=== PATIENT | male | born 1970 | race African-American/Black ===

== ENCOUNTER 2017-03-15 16:35 | Emergency (ER) | payer MEDICAID, OTHER ==
[~2017-03-15] VITALS: Ht 172.7 cm; Wt 65.0 kg
[~2017-03-15 16:35] MED LIST: APIX5TAB PO; ATOR40TA PO; GLUC1000 PO; HYDR-3129 PO; LEVEMIR SQ; LEXA10TA PO; LISI20 PO; NEUR600T PO; NIFE1TAB86 PO; NOVO7030P2 SQ; ZOLP5TAB3 PO
[2017-03-15 16:39] VITALS: BP 177/97; PULSE 89; RESP 15; TEMP 97.8; O2SAT 99
--- NOTE | 2017-03-15 16:42 | PD ---
Physical Exam Date Seen by Provider: Mar 15, 2017 Time Seen by Provider: 16:40 Data Data Last Documented VS Vital Signs Date Time Temp Pulse Resp B/P (MAP) Pulse Ox O2 Delivery O2 Flow Rate FiO2 03/15/17 16:39 97.8 89 15 177/97 (123) 99 MDM Supervised Visit with KAREN: No Narrative Course 46-year-old male with PMH of left BKA presents to ED for evaluation of wound on his stump. States that he noticed the wound today. Pain rated 7/10. Worsened by weightbearing. Denies fever, chills. History of stroke with right sided weakness. Vitals reviewed. Patient seen in triage, awaiting bed placement. Dinorah Crystal Mar 15, 2017 16:42
[2017-03-15] MEDS ORDERED: MORPHINE SULFATE 4 MG/ML INJ IV PUSH ONE (20:15)
[2017-03-15] MEDS ORDERED: SODIUM CHLOR 0.9% 1000 ML INJ 1,000 ML IV ONE (20:15)
[2017-03-15] MEDS ORDERED: ONDANSETRON HCL 4 MG/2 ML VIAL IV PUSH ONE (20:15)
--- NOTE | 2017-03-15 20:39 | PD ---
HPI Chief Complaint: Skin Problem Time Seen by Provider: 20:06 Travel History International Travel<30 days: No Contact w/Intl Traveler<30days: No Traveled to known affect area: No History of Present Illness HPI Patient is a 46-year-old male who comes in complaining of a sore to his left stump. He says he just noticed it today and it started draining fluid. He says this has never happened before. He had a BKA performed there 2 years ago due to poor circulation and diabetes. He does not recall any injury. He is not sure if the prosthetic is rubbing in that area. He also complains of pain to his right flank and right side. He says he has had pain here before, but this is different. He denies fever or chills. He denies nausea or vomiting. He denies any pain with urination. PFSH Past Medical History Hx Anticoagulant Therapy: Yes Depression: Yes Cardiovascular Problems: Yes (HTN) High Cholesterol: Yes Cerebrovascular Accident: Yes Diabetes: Yes Patient Takes Glucophage: Yes Diminished Hearing: No Hypertension: Yes Musculoskeletal: Yes (R TORN ROTATOR CUFF) Immunizations Current: No Seizures: Yes Tetanus Vaccination: Unknown Influenza Vaccination: No Social History Alcohol Use: Yes (OCCAS.) Tobacco Use: Yes (2 PPD) Substance Use: No Allergies-Medications (Allergen,Severity, Reaction): Coded Allergies: No Known Allergies (Verified , 01/01/16) Reported Meds & Prescriptions Reported Meds & Active Scripts Active Levemir (Insulin Detemir) 100 Units/Ml Inj 15 Units SQ BID 30 Days Prinivil 20 mg (Lisinopril) 20 Mg Tab 40 Mg PO DAILY 30 Days Nifedipine Er (Nifedipine) 60 Mg Tabcr 60 Mg PO DAILY 30 Days Zolpidem Tartrate 5 Mg Tab 5 Mg PO HS [place] 10/325 (Hydrocodone-Acetaminophen 10/325) Acetaminophen 325/10 Hydrocodone Tab 1 Tab PO Q6H PRN Reported Atorvastatin 40 mg (Atorvastatin Calcium) 40 Mg Tab 40 Mg PO HS Eliquis (Apixaban) 5 Mg Tab 5 Mg PO BID Lexapro (Escitalopram Oxalate) 10 Mg Tab 10 Mg PO DAILY Glucophage 1000 mg (Metformin HCl) 1,000 Mg Tab 1,000 Mg PO BID Gabapentin 600 Mg Tab 600 Mg PO QID Novolin 70/30 (Insulin Human Isoph/Insulin Regular) 100 Units/Ml Inj 0 SQ DIRECTED Sliding Scale As Directed. Review of Systems Except as stated in HPI: all other systems reviewed are Neg General / Constitutional: No: Fever, Chills HENT: No: Headaches, Lightheadedness Cardiovascular: No: Chest Pain or Discomfort Respiratory: No: Shortness of Breath Gastrointestinal: Positive: Abdominal Pain, No: Nausea, Vomiting Genitourinary: Positive: Flank Pain, No: Dysuria Musculoskeletal: Positive: Pain Skin: Positive Lesions Neurologic: No: Weakness, Dizziness Physical Exam Narrative GENERAL: Awake and alert, in no acute distress. SKIN: 1 cm open wound to the anterior portion of the distal left leg. Slight drainage of fluid. No surrounding erythema or warmth. HEAD: Atraumatic. Normocephalic. EYES: Pupils equal and round. No scleral icterus. No injection or drainage. ENT: Mucous membranes pink and moist. NECK: Trachea midline. No JVD. CARDIOVASCULAR: Regular rate and rhythm. No murmur appreciated. RESPIRATORY: No accessory muscle use. Clear to auscultation. Breath sounds equal bilaterally. GASTROINTESTINAL: Abdomen soft, nondistended. Right CVA tenderness. Tender to palpation along the right side of the abdomen. No rebound or guarding. MUSCULOSKELETAL: No obvious deformities. No clubbing. No cyanosis. Left BKA. No erythema or warmth to the leg. NEUROLOGICAL: Awake and alert. No obvious cranial nerve deficits. Motor grossly within normal limits. Normal speech. PSYCHIATRIC: Appropriate mood and affect; insight and judgment normal. Data Data Last Documented VS Vital Signs Date Time Temp Pulse Resp B/P (MAP) Pulse Ox O2 Delivery O2 Flow Rate FiO2 03/15/17 16:39 97.8 89 15 177/97 (123) 99 Orders Orders Iv Access Insert/Monitor (03/15/17 20:06) Complete Blood Count With Diff (03/15/17 20:06) Comprehensive Metabolic Panel (03/15/17 20:06) Westergren Sedimentation Rate (03/15/17 20:06) Urinalysis - C+S If Indicated (03/15/17 20:06) Ct Abd/Pel W/O Iv Contrast (03/15/17 ) Mri Lower Leg W/O Contrast (03/15/17 ) Sodium Chlor 0.9% 1000 Ml Inj (Ns 1000 M (03/15/17 20:15) Morphine Inj (Morphine Inj) (03/15/17 20:15) Ondansetron Inj (Zofran Inj) (03/15/17 20:15) Wound Culture And Gram Stain (03/15/17 21:45) Clindamycin Inj (Cleocin Inj) (03/15/17 22:45) Labs Laboratory Tests Test 03/15/17 21:30 White Blood Count 8.5 TH/MM3 Red Blood Count 5.06 MIL/MM3 Hemoglobin 15.3 GM/DL Hematocrit 45.6 % Mean Corpuscular Volume 90.1 FL Mean Corpuscular Hemoglobin 30.2 PG Mean Corpuscular Hemoglobin Concent 33.5 % Red Cell Distribution Width 12.8 % Platelet Count 296 TH/MM3 Mean Platelet Volume 10.1 FL Neutrophils (%) (Auto) 52.1 % Lymphocytes (%) (Auto) 39.0 % Monocytes (%) (Auto) 7.2 % Eosinophils (%) (Auto) 0.6 % Basophils (%) (Auto) 1.1 % Neutrophils # (Auto) 4.4 TH/MM3 Lymphocytes # (Auto) 3.3 TH/MM3 Monocytes # (Auto) 0.6 TH/MM3 Eosinophils # (Auto) 0.1 TH/MM3 Basophils # (Auto) 0.1 TH/MM3 CBC Comment DIFF FINAL Differential Comment Erythrocyte Sedimentation Rate 6 mm/hr Blood Urea Nitrogen 8 MG/DL Creatinine 0.79 MG/DL Random Glucose 309 MG/DL Total Protein 7.0 GM/DL Albumin 3.3 GM/DL Calcium Level 8.7 MG/DL Alkaline Phosphatase 94 U/L Aspartate Amino Transf (AST/SGOT) 10 U/L Alanine Aminotransferase (ALT/SGPT) 19 U/L Total Bilirubin 0.4 MG/DL Sodium Level 135 MEQ/L Potassium Level 3.8 MEQ/L Chloride Level 101 MEQ/L Carbon Dioxide Level 30.3 MEQ/L Anion Gap 4 MEQ/L Estimat Glomerular Filtration Rate 127 ML/MIN [facility] Medical Decision Making Medical Screen Exam Complete: Yes Emergency Medical Condition: Yes Medical Record Reviewed: Yes Differential Diagnosis Renal stone versus pyelonephritis versus abscess versus cellulitis versus osteomyelitis Narrative Course Patient is a 46 year old male who comes in complaining of a sore to his left leg and pain to his right flank. Exam shows a small wound to his left stump and right sided CVA tenderness. IV established, labs sent. Labs, including sed rate, are negative for acute abnormalities. CT abd/pelvis shows no acute abnormalities, no renal stone. MRI of the leg shows no evidence of osteomyelitis. Given pain medicine and clindamycin. Will be discharged with prescription for Clindamycin for cellulitis. Advised to keep the wound covered and try to stay off of it with his prosthesis. Advised to follow up with his doctor and keep control of his sugar. Advised to return at anytime if the symptoms worsen. Diagnosis Primary Impression: Cellulitis Qualified Codes: L03.116 - Cellulitis of left lower limb Patient Instructions: Cellulitis (ED), General Instructions Additional Instructions: Take all of the antibiotic. Take pain medicine as needed. Follow up with your doctor. Return to the ED as needed for any worsening symptoms. Scripts Hydrocodone-Acetaminophen (Lortab) 5-325 Mg Tab 1 TAB PO Q6H Y for PAIN, #12 TAB 0 Refills Prov: Sima José MD 03/15/17 Clindamycin (Clindamycin) 300 Mg Cap 600 MG PO Q8H for Infection for 7 Days, #42 CAP 0 Refills Prov: Sima José MD 03/15/17 Disposition: 01 DISCHARGE HOME Condition: Stable Sima José MD Mar 15, 2017 20:39
--- NOTE | 2017-03-15 21:28 | RADRPT ---
EXAM DATE/TIME: 03/15/2017 21:04 [facility] COMPARISON: No previous studies available for comparison. INDICATIONS : Right flank pain. Evaluate for calculi. ORAL CONTRAST: No oral contrast ingested. RADIATION DOSE: 6.77 CTDIvol (mGy) MEDICAL HISTORY : Hypertension. Cerebrovascular disease. Seizures.Diabetes. SURGICAL HISTORY : None. ENCOUNTER: Initial ACUITY: 1 day PAIN SCALE: 7/10 LOCATION: Right flank TECHNIQUE: Volumetric scanning of the abdomen and pelvis was performed. Using automated exposure control and ad justment of the mA and/or kV according to patient size, radiation dose was kept as low as reasonably achievable to obtain optimal diagnostic quality images. DICOM format image data is available electro nically for review and comparison. FINDINGS: The scan was performed the patient's hands over the upper abdomen, causing streak artifact. LOWER LUNGS: The visualized lower lungs are clear. LIVER: Homogeneous density without lesion. There is no dilation of the biliary tree. No calcified gallston es. SPLEEN: Normal size without lesion. PANCREAS: Within normal limits. KIDNEYS: Normal in size and shape. There is no mass, stone, or hydronephrosis. No calcifications along the c ourse of either ureter. ADRENAL GLANDS: Within normal limits. VASCULAR: There is no aortic aneurysm. BOWEL/MESENTERY: No dilated loops of small or large bowel. Moderate amount of stool throughout the colon. ABDOMINAL WALL: Within normal limits. RETROPERITONEUM: There is no lymphadenopathy. BLADDER: No wall thickening or mass. No calcifications within the lumen. REPRODUCTIVE: Within normal limits. INGUINAL: There is no lymphadenopathy or hernia. MUSCULOSKELETAL: Within normal limits for patient age. CONCLUSION: No calcified renal stones or hydronephrosis. Ernesto Flynn MD on March 15, 2017 at 21:24 Board Certified Radiologist. This report was verified electronically.
[2017-03-15 21:44] LABS: AUTOMATED NEUTROPHIL # 4.4 TH/MM3 (1.8-7.7); BASOPHIL # 0.1 TH/MM3 (0-0.2); BASOPHIL % 1.1 % (0.0-2.0); EOSINOPHIL # 0.1 TH/MM3 (0-0.4); EOSINOPHIL % 0.6 % (0.0-4.0); HEMATOCRIT 45.6 % (39.0-51.0); HEMO FLAGS DIFF FINAL; LYMPHOCYTE # 3.3 TH/MM3 (1.0-4.8); MEAN CELL VOLUME 90.1 FL (80.0-100.0); MEAN CORPUSCULAR HEMOGLOBIN 30.2 PG (27.0-34.0); MEAN CORPUSCULAR HGB CONC 33.5 % (32.0-36.0); MONO % 7.2 % (0.0-8.0); NEUT % 52.1 % (16.0-70.0); PLATELET COUNT 296 TH/MM3 (150-450); RED BLOOD COUNT 5.06 MIL/MM3 (4.50-5.90); RED CELL DISTRIBUTION WIDTH 12.8 % (11.6-17.2); WHITE BLOOD COUNT 8.5 TH/MM3 (4.0-11.0)
--- NOTE | 2017-03-15 22:08 | RADRPT ---
EXAM DATE/TIME: 03/15/2017 21:32 [facility] COMPARISON: No previous studies available for comparison. INDICATIONS : Pain with new wound of stump. MEDICAL HISTORY : Hypertension. Diabetes mellitus type 2. Cerebrovascular disease. SURGICAL HISTORY : Lt BKA amputation. ENCOUNTER: Initial ACUITY: 1 day PAIN SCORE: 0/10 LOCATION: Left lower leg. TECHNIQUE: Multiplanar multisequence MRI examination of the lower leg was performed without contrast. FINDINGS: The examination is performed without intravenous contrast which limits evaluation for infectious or i nflammatory processes. There is normal signal in the marrow of the tibia and fibula at the BKA stump . There is some T1 and T2 prolongation in the cutaneous tissues inferior and lateral of the stump. No drainable fluid collections seen. No segmental abnormalities within the muscle groups. CONCLUSION: 1. No evidence of osteomyelitis. 2. Edema and thickening of the cutaneous tissues inferior and lateral at the stump site. Ernesto Flynn MD on March 15, 2017 at 22:04 Board Certified Radiologist. This report was verified electronically.
[2017-03-15 22:18] LABS: ALT (GPT) 19 U/L (12-78); ANION GAP 4 MEQ/L (5-15); AST (GOT) 10 U/L (15-37); BICARBONATE 30.3 MEQ/L (21.0-32.0); BLOOD UREA NITROGEN 8 MG/DL (7-18); CHLORIDE 101 MEQ/L (98-107); GLOMERULAR FILTRATION RATE 127 ML/MIN (>89); POTASSIUM 3.8 MEQ/L (3.5-5.1); SODIUM (NA) 135 MEQ/L (136-145)
[2017-03-15 22:21] LABS: ALKALINE PHOSPHATASE 94 U/L (45-117); TOTAL BILIRUBIN ADULT 0.4 MG/DL (0.2-1.0)
[2017-03-15] MEDS ORDERED: CLINDAMYCIN INJ 600 MG in SODIUM CHLORIDE 0.9% INJ 100 ML IV ONE (22:45)
[2017-03-15] MEDS ORDERED: HYDR-3533 PO (23:12)
[2017-03-15] MEDS ORDERED: CLIN1CAP6 PO (23:12)
== END 2017-03-15 23:40 | disposition home or self-care (01) ==
LOC: NEPD 16:35
DX: L03.116 Cellulitis of left lower limb (principal); Z89.512 Acquired absence of left leg below knee; R10.9 Unspecified abdominal pain; I10 Essential (primary) hypertension; E11.9 Type 2 diabetes mellitus without complications; E78.00 Pure hypercholesterolemia, unspecified; R56.9 Unspecified convulsions; F32.9 Major depressive disorder, single episode, unspecified; Z86.73 Personal history of transient ischemic attack (TIA), and cerebral infarction without residual deficits
CPT/HCPCS: 73718; 74176; 80053; 85025; 85652; 86403; 87070; 87077; 96374; 96375; 99285; J2270; J2405; J7030; 87186; 87205

== ENCOUNTER 2017-10-26 22:28 | Observation (INO) | payer MEDICAID, OTHER ==
[~2017-10-26] VITALS: Ht 172.7 cm; Wt 70.0 kg
[~2017-10-26 22:28] MED LIST changes: -ATOR40TA PO; +GABA600T PO; -GLUC1000 PO; +HUMALOG SQ; -HYDR-3129 PO; +HYDR-3534 PO; +HYDR-3583 PO; -LEXA10TA PO; -LISI20 PO; -NEUR600T PO; -NOVO7030P2 SQ; -ZOLP5TAB3 PO
[2017-10-26 22:48] VITALS: BP 142/73; PULSE 89; RESP 18; TEMP 98; O2SAT 100
[2017-10-26 23:01] VITALS: BP 135/66; PULSE 89; RESP 20; O2SAT 100
[2017-10-26] MEDS ORDERED: APIX5TAB PO (23:04)
--- NOTE | 2017-10-26 23:08 | PD ---
HPI Chief Complaint: Field Marketing Manager Problem Time Seen by Provider: 22:57 Travel History International Travel<30 days: No Contact w/Intl Traveler<30days: No Traveled to known affect area: No History of Present Illness HPI The patient is a 47 year old male who presents to the [facility] emergency department with a history of accidentally dislodging his PICC line when running up off of the toilet between 830 and 9 PM. Patient reports that he realized that it was dislodged when he was about to administer his nighttime antibiotic. The patient reports that he is on vancomycin and cefepime for an infection in the bone of the stump of the left lower extremity below the knee amputation site. The patient reports that he has been on antibiotics for the last 4 weeks. He reports that he was told that it would continue for another 3 weeks. The patient reports that he recently had a change in his primary care physician and has an appointment with a new one scheduled for Friday. The patient reports that he missed his nighttime dose of antibiotic. He is scheduled to have his antibiotic administered again at 9 AM. He reports that his helps him to administer the medication. The patient gets around with the use of a motorized wheelchair. The patient reports a prior history of right -sided nephrectomy stroke and a history of 4 weeks ago undergoing a right below the knee amputation and went to [place]. The patient also reports during that hospitalization having a stent placed in the right lower extremity and a cardiac stent placed. He was also told that he needs to undergo coronary artery bypass grafting, however this will not be scheduled until he completes his course of antibiotic. On review of systems, the patient denies having any recent fevers, worsening cough or congestion, neck pain, chest pain, shortness of breath, abdominal pain, vomiting, diarrhea, urinary symptoms, or new neurologic symptoms. [facility] Past Medical History Narrative Medical The patient's past medical history is significant for depression, hypertension, hyperlipidemia, history of cerebrovascular accident, diabetes mellitus, hypertension, seizure disorder, coronary artery disease, right rotator cuff injury, tobacco abuse, peripheral arterial disease. Hx Anticoagulant Therapy: Yes Depression: Yes Cardiac Catheterization: Yes Cardiovascular Problems: Yes (HTN) High Cholesterol: Yes Cerebrovascular Accident: Yes Coronary Artery Disease: Yes Diabetes: Yes Patient Takes Glucophage: No Diminished Hearing: No Hypertension: Yes Musculoskeletal: Yes (R TORN ROTATOR CUFF) Immunizations Current: No Seizures: Yes Tetanus Vaccination: Unknown Influenza Vaccination: No Past Surgical History Narrative Surgical The patient's past surgical history is significant for left below the knee amputation, stent in his leg, cardiac catheterization with cardiac stent placement, right below the knee amputation. Coronary Stent: Yes Other Surgery: Yes (PICC line placement, stent in right leg) Social History Alcohol Use: Yes (OCCAS.) Tobacco Use: Yes (trying to quit) Substance Use: No Allergies-Medications (Allergen,Severity, Reaction): Coded Allergies: No Known Allergies (Verified Adverse Reaction, Unknown, 10/26/17) Reported Meds & Prescriptions Reported Meds & Active Scripts Active Hydrocodone-Acetamin 10-325 mg (Hydrocodone/Acetaminophen) 10 Mg-325 Mg Tablet 1 Tab PO TID Gabapentin 600 Mg Tab 600 Mg PO TID Reported Santyl Topical (Collagenase) 250 Unit/Gm Oint 1 Applic TOPICAL DAILY Cefepime Inj (Cefepime HCl) 1 Gm/50 Ml Bagp 1 Gm IV Q12H Vancomycin Inj (Vancomycin HCl) 1 Gram Inj 750 Mg IV DAILY Carvedilol 25 Mg Tab 25 Mg BID Clopidogrel (Clopidogrel Bisulfate) 75 Mg Tab 75 Mg PO DAILY Lisinopril 40 Mg Tab 40 Mg PO DAILY Aspirin 81 Mg Chew 81 Mg CHEW DAILY Amitriptyline (Amitriptyline HCl) 25 Mg Tab 25 Mg PO HS Eliquis (Apixaban) 5 Mg Tab 5 Mg PO BID Levemir Inj (Insulin Detemir) 1,000 unit/ 10 ML Vial 15 Units SQ DAILY Do not mix with any other Insulin. Humalog Inj (Insulin Human Lispro) 1,000 Unit/10 Ml Vial SQ DIRECTED PRN Max dose at bedtime:( )units; sugars< 70,(0)units; sugars 150-199,(1)unit; sugars 200-249,(3)units; sugars 250-299,(5)units; sugars 300-349,(7)units; sugars more than 349,(9)units. Review of Systems Except as stated in HPI: all other systems reviewed are Neg General / Constitutional: No: Fever Eyes: No: Visual changes HENT: No: Headaches Cardiovascular: No: Chest Pain or Discomfort Respiratory: No: Shortness of Breath Gastrointestinal: No: Abdominal Pain Genitourinary: No: Dysuria Musculoskeletal: No: Pain Skin: No Rash Neurologic: No: Weakness, Focal Abnormalities, Change in Mentation, Slurred Speech, Sensory Disturbance Psychiatric: No: Depression Endocrine: No: Polydipsia Hematologic/Lymphatic: No: Easy Bruising Physical Exam Narrative General: The patient is a well-developed well-nourished male Head and Neck exam: Head is normocephalic atraumatic. Eyes: EOMI, pupils are equal round and reactive to light. Nose: Midline septum with pink mucous membranes Mouth: Dentition unremarkable. Moist mucus membranes. Posterior oropharynx is not erythematous. No tonsillar hypertrophy. Uvula midline. Airway patent. Neck: No palpable lymphadenopathy. No nuchal rigidity. No thyromegaly. Cardiovascular: Regular rate and rhythm without murmurs, gallops, or rubs. No pulse deficit to the extremities. Lungs: Clear to auscultation bilaterally. No wheezes, rhonchi, or rales. Abdomen: Soft, without tenderness to palpation in all 4 quadrants of the abdomen. No guarding, rebound, or rigidity. Negative [place] sign. Extremities: No clubbing, cyanosis, or edema. The patient has a PICC line bandage to the right upper extremity. The entirety of the PICC line is removed, however the adhesive bandages still in place holding it to his arm. No active bleeding is noted. The patient has had bilateral [id number] amputations. The patient has a bandage in place over the left lower extremity which was removed and overlying the stump he is noted to have a 3 x 3 cm ulceration with clear drainage. On examination of the right lower extremity the patient has a below the knee amputation noted with a healing stump. The patient is noted to have dara in place. There is no drainage noted. Back: No spinous process tenderness to palpation. No costovertebral angle tenderness to palpation. Neurologic Exam: At baseline given his prior history of stroke with residual weakness of the right upper and lower extremity. Skin Exam: Intact skin that is warm and dry. Data Data Last Documented VS Vital Signs Date Time Temp Pulse Resp B/P (MAP) Pulse Ox O2 Delivery O2 Flow Rate FiO2 10/26/17 23:01 89 20 135/66 (89) 100 Room Air 10/26/17 22:48 98.0 Orders Orders Complete Blood Count With Diff (10/26/17 23:33) Comprehensive Metabolic Panel (10/26/17 23:33) Prothrombin Time / Inr (Pt) (10/26/17 23:33) Act Partial Throm Time (Ptt) (10/26/17 23:33) Iv Access Insert/Monitor (10/26/17 23:33) Ecg Monitoring (10/26/17 23:33) Oximetry (10/26/17 23:33) Cefepime Inj (Maxipime Inj) (10/26/17 23:45) Vancomycin Inj (Vancomycin Inj) (10/26/17 23:45) Random Vancomycin (10/26/17 23:33) Admit Order (Ed Use Only) (10/27/17 00:57) Labs Laboratory Tests Test 10/27/17 00:00 White Blood Count 6.9 TH/MM3 Red Blood Count 2.78 MIL/MM3 Hemoglobin 8.2 GM/DL Hematocrit 24.6 % Mean Corpuscular Volume 88.4 FL Mean Corpuscular Hemoglobin 29.7 PG Mean Corpuscular Hemoglobin Concent 33.6 % Red Cell Distribution Width 15.4 % Platelet Count 321 TH/MM3 Mean Platelet Volume 8.8 FL Neutrophils (%) (Auto) 38.4 % Lymphocytes (%) (Auto) 33.2 % Monocytes (%) (Auto) 14.2 % Eosinophils (%) (Auto) 13.2 % Basophils (%) (Auto) 1.0 % Neutrophils # (Auto) 2.7 TH/MM3 Lymphocytes # (Auto) 2.3 TH/MM3 Monocytes # (Auto) 1.0 TH/MM3 Eosinophils # (Auto) 0.9 TH/MM3 Basophils # (Auto) 0.1 TH/MM3 CBC Comment DIFF FINAL Differential Comment Prothrombin Time 10.6 SEC Prothromb Time International Ratio 1.0 RATIO Activated Partial Thromboplast Time 20.8 SEC Blood Urea Nitrogen 27 MG/DL Creatinine 1.27 MG/DL Random Glucose 152 MG/DL Total Protein 7.5 GM/DL Albumin 3.2 GM/DL Calcium Level 8.4 MG/DL Alkaline Phosphatase 99 U/L Aspartate Amino Transf (AST/SGOT) 38 U/L Alanine Aminotransferase (ALT/SGPT) 35 U/L Total Bilirubin 0.4 MG/DL Sodium Level 140 MEQ/L Potassium Level 5.4 MEQ/L Chloride Level 109 MEQ/L Carbon Dioxide Level 25.0 MEQ/L Anion Gap 6 MEQ/L Estimat Glomerular Filtration Rate 73 ML/MIN Random Vancomycin Level 16.3 COMMENT [facility] Medical Decision Making Medical Screen Exam Complete: Yes Emergency Medical Condition: Yes Medical Record Reviewed: Yes Differential Diagnosis Dislodged PICC line, versus broken PICC line Narrative Course During the course of the patient's emergency department visit, the patient's history, examination, and differential diagnosis were reviewed with the patient. The patient was placed on a cardiac care unit nurse with oximetry and frequent blood pressure monitoring. The patient had IV access obtained and blood work sent for analysis. The patient was initially provided his nighttime dose of cefepime and vancomycin. The patient's laboratory studies were reviewed and remarkable for a white count of 6.9, hemoglobin 8.2, platelets 321 with 14.2 monocytes, eosinophils 13.2. CMP is remarkable for potassium of 5.4, chloride 109, BUN 27, glucose 152, calcium 8.4, AST 38, albumin 3.2. 10.6, PTT 20.8. Random vancomycin level 16.3. The patient reports that he is currently in the process of switching to a new primary care physician. He has an appointment with his new physician scheduled for Friday. The patient's primary mode of transportation is by an electric wheelchair. Given these to complicating factors I did recommend that the patient be admitted for observation and PICC line replacement while the patient is continued on IV antibiotic. Physician Communication Physician Communication The patient's case including history, pertinent physical examination findings, and laboratory studies were discussed with Dr. Irving. It was [facility] Diagnosis Primary Impression: Osteomyelitis Qualified Codes: M86.9 - Osteomyelitis, unspecified Admitting Information Admitting Physician Requests: Observation Nancy Jessica MD October 26, 2017 23:08
[2017-10-26] MEDS ORDERED: LISI40TA PO (23:09)
[2017-10-26] MEDS ORDERED: AMIT25TA9 PO (23:09)
[2017-10-26] MEDS ORDERED: CARV25TA (23:09)
[2017-10-26] MEDS ORDERED: ASPI-516 CHEW (23:09)
[2017-10-26] MEDS ORDERED: CLOP75TA PO (23:09)
[2017-10-26] MEDS ORDERED: CEFE1INJ2 IV (23:14)
[2017-10-26] MEDS ORDERED: VANC1000P IV (23:14)
[2017-10-26] MEDS ORDERED: CEFEPIME INJ 1,000 MG in SODIUM CHLORIDE 0.9% INJ 100 ML IV ONE (23:45)
[2017-10-26] MEDS ORDERED: VANCOMYCIN INJ 750 MG in SODIUM CHLOR 0.9% 250 ML INJ 250 ML IV ONE (23:45)
[2017-10-27 00:15] LABS: AUTOMATED NEUTROPHIL # 2.7 TH/MM3 (1.8-7.7); BASOPHIL # 0.1 TH/MM3 (0-0.2); EOSINOPHIL # 0.9 TH/MM3 (0-0.4); EOSINOPHIL % 13.2 % (0.0-4.0); HEMATOCRIT 24.6 % (39.0-51.0); HEMOGLOBIN 8.2 GM/DL (13.0-17.0); LYMPH % 33.2 % (9.0-44.0); LYMPHOCYTE # 2.3 TH/MM3 (1.0-4.8); MEAN CELL VOLUME 88.4 FL (80.0-100.0); MEAN CORPUSCULAR HEMOGLOBIN 29.7 PG (27.0-34.0); MEAN CORPUSCULAR HGB CONC 33.6 % (32.0-36.0); MEAN PLATELET VOLUME 8.8 FL (7.0-11.0); MONO % 14.2 % (0.0-8.0); NEUT % 38.4 % (16.0-70.0); PLATELET COUNT 321 TH/MM3 (150-450); RED BLOOD COUNT 2.78 MIL/MM3 (4.50-5.90); RED CELL DISTRIBUTION WIDTH 15.4 % (11.6-17.2); WHITE BLOOD COUNT 6.9 TH/MM3 (4.0-11.0)
[2017-10-27 00:27] LABS: ALBUMIN 3.2 GM/DL (3.4-5.0); AST (GOT) 38 U/L (15-37); BLOOD UREA NITROGEN 27 MG/DL (7-18); CALCIUM 8.4 MG/DL (8.5-10.1); CHLORIDE 109 MEQ/L (98-107); CREATININE 1.27 MG/DL (0.60-1.30); GLOMERULAR FILTRATION RATE 73 ML/MIN (>89); GLUCOSE,RANDOM 152 MG/DL (74-106); SODIUM (NA) 140 MEQ/L (136-145)
[2017-10-27 00:30] LABS: ALKALINE PHOSPHATASE 99 U/L (45-117); ALT (GPT) 35 U/L (12-78); RANDOM VANCOMYCIN 16.3 COMMENT; TOTAL BILIRUBIN ADULT 0.4 MG/DL (0.2-1.0); TOTAL PROTEIN 7.5 GM/DL (6.4-8.2)
[2017-10-27 00:31] LABS: PROTHROMBIN TIME - PATIENT 10.6 SEC (9.8-11.6)
[2017-10-27] MEDS ORDERED: COLL30T TOPICAL (00:41)
[2017-10-27 01:01] VITALS: BP 133/74; PULSE 83; RESP 16; O2SAT 97; O2SAT 98
[2017-10-27] MEDS ORDERED: ONDANSETRON ODT 4 MG TAB PO PRN (02:15)
[2017-10-27] MEDS ORDERED: MAGNESIUM HYDROXIDE SUSP 30 ML CUP PO PRN (02:15)
[2017-10-27] MEDS ORDERED: LACTULOSE SYRUP 20 GM/30 ML CUP PO PRN (02:15)
[2017-10-27] MEDS ORDERED: NALOXONE HCL 0.4 MG/ML AMP IV PUSH PRN (02:15)
[2017-10-27] MEDS ORDERED: Vancomycin Consult Pharmacy 1 EA OTHER SCH (02:15)
[2017-10-27] MEDS ORDERED: SODIUM CHLORIDE 0.9% FLUSH 10 ML FLUSH IV FLUSH PRN (02:15)
[2017-10-27] MEDS ORDERED: BISACODYL 10 MG SUPP RECTAL PRN (02:15)
[2017-10-27] MEDS ORDERED: SENNOSIDES 8.6 MG TAB PO PRN (02:15)
[2017-10-27] MEDS ORDERED: ACETAMINOPHEN 325 MG TAB PO PRN (02:15)
--- NOTE | 2017-10-27 02:18 | HHI.HP ---
HPI Service [facility] Primary Care Physician Zeyad José MD (Paul) Admission Diagnosis Left leg stump infection, picc line replacement Diagnoses: Travel History International Travel<30 Days: No Contact w/Intl Traveler <30 Da: No Traveled to Known Affected Are: No History of Present Illness 47-year-old male with a past medical history significant for coronary artery disease, peripheral vascular disease, history of CVA with right-sided deficits, diabetes mellitus, hypertension, hyperlipidemia presents to the emergency department after he accidentally removed his PICC line. The patient reports he was trying to transfer from the commode to his wheelchair when his arm got stuck pulling the PICC line out. He is on IV vancomycin and cefepime for left lower extremity osteomyelitis. He is status post bilateral BKA, with a right BKA completed approximately 1 month ago. The patient also reports a recent cardiac catheterization with stent placement. He states he requires a CABG however this cannot be done until his infection clears. He also had a stent placed in the right lower extremity during his most recent hospitalization in [place]. He is compliant with his IV antibiotics at home and is establishing with a new primary care physician with an appointment arranged for Friday. The patient denies any chest pain or shortness of breath. No fever/ chills. No abdominal pain. No nausea/vomiting/diarrhea. Residual right-sided paralysis from previous CVA is baseline. Review of Systems Except as stated in HPI: all other systems reviewed are Neg Past Family Social History Past Medical History coronary artery disease, peripheral vascular disease, history of CVA with right -sided deficits, diabetes mellitus, hypertension, hyperlipidemia Past Surgical History Right lower extremity stent placement Cardiac catheterization with stent placement Bilateral BKA most recently right side done 1 month ago Reported Medications Reported Meds & Active Scripts Active Hydrocodone-Acetamin 10-325 mg (Hydrocodone/Acetaminophen) 10 Mg-325 Mg Tablet 1 Tab PO TID Gabapentin 600 Mg Tab 600 Mg PO TID Reported Santyl Topical (Collagenase) 250 Unit/Gm Oint 1 Applic TOPICAL DAILY Cefepime Inj (Cefepime HCl) 1 Gm/50 Ml Bagp 1 Gm IV Q12H Vancomycin Inj (Vancomycin HCl) 1 Gram Inj 750 Mg IV DAILY Carvedilol 25 Mg Tab 25 Mg BID Clopidogrel (Clopidogrel Bisulfate) 75 Mg Tab 75 Mg PO DAILY Lisinopril 40 Mg Tab 40 Mg PO DAILY Aspirin 81 Mg Chew 81 Mg CHEW DAILY Amitriptyline (Amitriptyline HCl) 25 Mg Tab 25 Mg PO HS Eliquis (Apixaban) 5 Mg Tab 5 Mg PO BID Levemir Inj (Insulin Detemir) 1,000 unit/ 10 ML Vial 15 Units SQ DAILY Do not mix with any other Insulin. Humalog Inj (Insulin Human Lispro) 1,000 Unit/10 Ml Vial SQ DIRECTED PRN Max dose at bedtime:( )units; sugars< 70,(0)units; sugars 150-199,(1)unit; sugars 200-249,(3)units; sugars 250-299,(5)units; sugars 300-349,(7)units; sugars more than 349,(9)units. Allergies: Coded Allergies: No Known Allergies (Verified Adverse Reaction, Unknown, 10/26/17) Family History Mother with diabetes mellitus Social History Smokes approximately 2-3 cigarettes per day. Denies alcohol and illicit drugs. Physical Exam Vital Signs Vital Signs Date Time Temp Pulse Resp B/P (MAP) Pulse Ox O2 Delivery O2 Flow Rate FiO2 10/27/17 01:01 97 Room Air 10/27/17 01:01 83 16 133/74 (93) 98 Room Air 10/26/17 23:01 89 20 135/66 (89) 100 Room Air 10/26/17 22:48 98.0 89 18 142/73 (96) 100 Physical Exam GENERAL: -[place]ue[place] male sitting up in bed SKIN: 5 x 3 cm ulceration of the skin of the left lower extremity HEAD: Atraumatic. Normocephalic. No temporal or scalp tenderness. EYES: Pupils equal round and reactive. Extraocular motions intact. No scleral icterus. No injection or drainage. ENT: Nose without bleeding, purulent drainage or septal hematoma. Throat without erythema, tonsillar hypertrophy or exudate. Uvula midline. Airway patent. NECK: Trachea midline. No JVD or lymphadenopathy. Supple, nontender, no meningeal signs. CARDIOVASCULAR: Regular rate and rhythm without murmurs, gallops, or rubs. RESPIRATORY: Clear to auscultation. Breath sounds equal bilaterally. No wheezes , rales, or rhonchi. GASTROINTESTINAL: Abdomen soft, non-tender, nondistended. No hepato-splenomegaly , or palpable masses. No guarding. MUSCULOSKELETAL: Bilateral BKA with dara present on the right NEUROLOGICAL: Awake and alert. Cranial nerves II through XII intact. Motor and sensory grossly within normal limits. Normal speech. Laboratory Laboratory Tests Test 10/27/17 00:00 White Blood Count 6.9 Red Blood Count 2.78 Hemoglobin 8.2 Hematocrit 24.6 Mean Corpuscular Volume 88.4 Mean Corpuscular Hemoglobin 29.7 Mean Corpuscular Hemoglobin Concent 33.6 Red Cell Distribution Width 15.4 Platelet Count 321 Mean Platelet Volume 8.8 Neutrophils (%) (Auto) 38.4 Lymphocytes (%) (Auto) 33.2 Monocytes (%) (Auto) 14.2 Eosinophils (%) (Auto) 13.2 Basophils (%) (Auto) 1.0 Neutrophils # (Auto) 2.7 Lymphocytes # (Auto) 2.3 Monocytes # (Auto) 1.0 Eosinophils # (Auto) 0.9 Basophils # (Auto) 0.1 CBC Comment DIFF FINAL Differential Comment Prothrombin Time 10.6 Prothromb Time International Ratio 1.0 Activated Partial Thromboplast Time 20.8 Blood Urea Nitrogen 27 Creatinine 1.27 Random Glucose 152 Total Protein 7.5 Albumin 3.2 Calcium Level 8.4 Alkaline Phosphatase 99 Aspartate Amino Transf (AST/SGOT) 38 Alanine Aminotransferase (ALT/SGPT) 35 Total Bilirubin 0.4 Sodium Level 140 Potassium Level 5.4 Chloride Level 109 Carbon Dioxide Level 25.0 Anion Gap 6 Estimat Glomerular Filtration Rate 73 Random Vancomycin Level 16.3 Result Diagram: 10/27/17 0000 10/27/17 0000 Caprini VTE Risk Assessment Caprini VTE Risk Assessment: Mod/High Risk (score >= 2) Caprini Risk Assessment Model Point Value = 1 Point Value = 2 Point Value = 3 Point Value = 5 Age 41-60 Minor surgery BMI > 25 kg/m2 Swollen legs Varicose veins or History of unexplained or recurrent spontaneous Oral contraceptives or hormone replacement Sepsis (< 1 month) Serious lung disease, including pneumonia (< 1 month) Abnormal pulmonary function Acute myocardial infarction Congestive heart failure (< 1 month) History of inflammatory bowel disease Medical patient at bed rest Age 61-74 Arthroscopic surgery Major open surgery (> 45 min) Laparoscopic surgery (> 45 min) Malignancy Confined to bed (> 72 hours) Immobilizing plaster cast Central venous access Age >= 75 History of VTE Family history of VTE Factor V Leiden Prothrombin [id number] Lupus anticoagulant Anticardiolipin antibodies Elevated serum homocysteine Heparin-induced thrombocytopenia Other congenital or acquired thrombophilia Stroke (< 1 month) Elective arthroplasty Hip, pelvis, or leg fracture Acute spinal cord injury (< 1 month) Prophylaxis Regimen Total Risk Factor Score Risk Level Prophylaxis Regimen 0-1 Low Early ambulation 2 Moderate Order ONE of the following: *Sequential Compression Device (SCD) *Heparin 5000 units SQ BID 3-4 Higher Order ONE of the following medications: *Heparin 5000 units SQ TID *Enoxaparin/Lovenox 40 mg SQ daily (WT < 150 kg, CrCl > 30 mL/min) *Enoxaparin/Lovenox 30 mg SQ daily (WT < 150 kg, CrCl > 10-29 mL/min) *Enoxaparin/Lovenox 30 mg SQ BID (WT < 150 kg, CrCl > 30 mL/min) AND/OR *Sequential Compression Device (SCD) 5 or more Highest Order ONE of the following medications: *Heparin 5000 units SQ TID (Preferred with Epidurals) *Enoxaparin/Lovenox 40 mg SQ daily (WT < 150 kg, CrCl > 30 mL/min) *Enoxaparin/Lovenox 30 mg SQ daily (WT < 150 kg, CrCl > 10-29 mL/min) *Enoxaparin/Lovenox 30 mg SQ BID (WT < 150 kg, CrCl > 30 mL/min) AND *Sequential Compression Device (SCD) Assessment and Plan Assessment and Plan Assessment/plan: 1. Osteomyelitis Patient on vancomycin and cefepime, continue at home dosing Vascular access team consulted for PICC line placement Patient will follow with his PCP on Friday Anticipate discharge after PICC placed 2. CAD/PVD/history of CVA Continue home Plavix, Eliquis and aspirin 3. Diabetes mellitus Continue home Levemir Sliding-scale insulin Monitor blood glucose 4. Hypertension/hyperlipidemia Continue home medication FEN Heart healthy diabetic diet Electrolytes: Monitor and replete as needed Iqra Irving MD October 27, 2017 02:18
[2017-10-27 03:34] VITALS: BP 116/63; PULSE 82; RESP 18; O2SAT 100
[2017-10-27 07:22] VITALS: BP 132/73; PULSE 81; RESP 20; TEMP 97.5; O2SAT 98
--- NOTE | 2017-10-27 08:27 | HHI.DCPOC ---
Discharge Care Plan Diagnosis: (1) DM (diabetes mellitus) (2) Tobacco abuse (3) CVA (cerebral vascular accident) (4) HTN (hypertension) Your Health Problems Are: Anxiety Inflammation Swelling Goals to Promote Your Health * To prevent worsening of your condition and complications * To maintain your health at the optimal level Directions to Meet Your Goals Take your medications as prescribed Follow your dietary instruction Follow activity as directed Keep your appointments as scheduled Take your immunizations and boosters as scheduled If your symptoms worsen call your PCP, if no PCP go to Urgent Care Center or Emergency Room Smoking is Dangerous to Your Health. Avoid second hand smoke Call the 24-hour hour crisis hotline for domestic abuse at [place] October 27, 2017 08:27
--- NOTE | 2017-10-27 08:38 | HHI.FF ---
Face to Face Verification Diagnosis: (1) Osteomyelitis (2) DM (diabetes mellitus) (3) Tobacco abuse (4) CVA (cerebral vascular accident) Physical Therapy Order: Evaluate and Treat Home Health Nursing Order: Medical education Signs/symptoms of disease process Medication education-adverse effect Wound care and dressing changes Nursing assessment with vital signs IV medication administration Home Health Aide Order: To Assist In: Bathing and personal care I have seen patient Chidi Mattson on 10/27/17. My clinical findings support the need for the requested home health care services because: Ltd mobility - disease progression Limited ability to care for self I certify that my clinical findings support that this patient is homebound because: Need for psychosocial assistance [id number] bed/chair [place] October 27, 2017 08:38
--- NOTE | 2017-10-27 08:59 | HHI.PR ---
Subjective Remarks Follow-up accidental removal of PICC line/groin osteomyelitis of left stump on IV antibiotics October 27, 2017-patient seen and examined, no acute event overnight vital stable. Awaiting for vascular to see him to place a PICC line. Objective Vitals Vital Signs Date Time Temp Pulse Resp B/P (MAP) Pulse Ox O2 Delivery O2 Flow Rate FiO2 10/27/17 07:22 97.5 81 20 132/73 (92) 98 10/27/17 03:34 82 18 116/63 (80) 100 10/27/17 02:54 10/27/17 01:01 97 Room Air 10/27/17 01:01 83 16 133/74 (93) 98 Room Air 10/26/17 23:01 89 20 135/66 (89) 100 Room Air 10/26/17 22:48 98.0 89 18 142/73 (96) 100 I/O 10/26/17 10/26/17 10/26/17 10/27/17 10/27/17 10/27/17 07:00 15:00 23:00 07:00 15:00 23:00 Intake Total 357.5 ml Balance 357.5 ml Intake IV Total 357.5 ml # Voids 1 Result Diagram: 10/27/17 0000 10/27/17 0000 Objective Remarks GENERAL: NAD SKIN: Warm and dry. HEAD: Normocephalic. EYES: No scleral icterus. No injection or drainage. NECK: Supple, trachea midline. No JVD or lymphadenopathy. CARDIOVASCULAR: Regular rate and rhythm without murmurs, gallops, or rubs. RESPIRATORY: Breath sounds equal bilaterally. No accessory muscle use. GASTROINTESTINAL: Abdomen soft, non-tender, nondistended. MUSCULOSKELETAL: No cyanosis, or edema. Bilateral BKAs; left stump with wound non purulent BACK: Nontender without obvious deformity. No CVA tenderness. A/P Problem List: (1) Osteomyelitis ICD Code: M86.9 - Osteomyelitis, unspecified (2) HTN (hypertension) ICD Code: I10 - Essential (primary) hypertension Status: Acute Assessment and Plan 47-year-old man with 1. Osteomyelitis Patient on vancomycin and cefepime, continue at home dosing Vascular access team consulted for PICC line placement Patient will follow with his PCP on Friday 2. CAD/PVD/history of CVA Continue home Plavix, Eliquis and aspirin 3. Diabetes mellitus Continue home Levemir Sliding-scale insulin Monitor blood glucose 4. Hypertension/hyperlipidemia Continue home medication Discharge Planning Discharge patient to home Condition on discharge: Improved ADA Diet as tolerated Ad Rena activity Rx written:None Follow-up with primary care physician 10/29/17 Omi Ayon MD October 27, 2017 08:59
[2017-10-27] MEDS ORDERED: GABAPENTIN 300 MG CAP PO SCH (09:00)
[2017-10-27] MEDS ORDERED: SODIUM CHLORIDE 0.9% FLUSH 10 ML FLUSH IV FLUSH SCH (09:00)
[2017-10-27] MEDS ORDERED: ASPIRIN 81 MG CHEW TAB CHEW SCH (09:00)
[2017-10-27] MEDS ORDERED: CARVEDILOL 12.5 MG TAB PO SCH (09:00)
[2017-10-27] MEDS ORDERED: ACETAMINOPHEN/HYDROcodone 325 MG/10 MG TAB PO SCH (09:00)
[2017-10-27] MEDS ORDERED: CEFEPIME INJ 1,000 MG in SODIUM CHLORIDE 0.9% INJ 100 ML IV SCH (09:00)
[2017-10-27] MEDS ORDERED: INSULIN DETEMIR 100 UNITS/ML VIAL SQ SCH (09:00)
[2017-10-27] MEDS ORDERED: APIXABAN 5 MG TABLET PO SCH (09:00)
[2017-10-27] MEDS ORDERED: DOCUSATE SODIUM 50 MG/SENNA 8.6 MG TAB PO SCH (09:00)
[2017-10-27] MEDS ORDERED: VANCOMYCIN INJ 750 MG in SODIUM CHLOR 0.9% 250 ML INJ 250 ML IV SCH (09:00)
[2017-10-27] MEDS ORDERED: LISINOPRIL 20 MG TAB PO SCH (09:00)
[2017-10-27] MEDS ORDERED: CLOPIDOGREL 75 MG TAB PO SCH (09:00)
[2017-10-27 10:53] VITALS: BP 153/84; PULSE 84; RESP 20; TEMP 97.9; O2SAT 100
[2017-10-27] MEDS ORDERED: AMITRIPTYLINE HCL 25 MG TAB PO SCH (21:00)
[2017-10-28] MEDS ORDERED: VANCOMYCIN INJ 750 MG in SODIUM CHLOR 0.9% 250 ML INJ 250 ML IV SCH (01:00)
[2017-10-30] MEDS ORDERED: PHARMACY ORDERED LAB ONE (00:45)
== END 2017-10-27 13:12 | disposition home or self-care (01) ==
LOC: NEPE 22:28 → NEDA 10-27 00:59 → NEPGCP 10-27 02:54
PROVIDERS: ADMIT Hospitalist; ATTEND Hospitalist
DX: T87.44 Infection of amputation stump, left lower extremity (principal); E11.69 Type 2 diabetes mellitus with other specified complication; M86.9 Osteomyelitis, unspecified; E11.51 Type 2 diabetes mellitus with diabetic peripheral angiopathy without gangrene; I25.10 Atherosclerotic heart disease of native coronary artery without angina pectoris; I10 Essential (primary) hypertension; E78.5 Hyperlipidemia, unspecified; G40.909 Epilepsy, unspecified, not intractable, without status epilepticus; I69.351 Hemiplegia and hemiparesis following cerebral infarction affecting right dominant side; F32.9 Major depressive disorder, single episode, unspecified; F17.210 Nicotine dependence, cigarettes, uncomplicated; Z45.2 Encounter for adjustment and management of vascular access device; Z79.899 Other long term (current) drug therapy; Z79.82 Long term (current) use of aspirin; Z79.01 Long term (current) use of anticoagulants; Z79.02 Long term (current) use of antithrombotics/antiplatelets; Z89.511 Acquired absence of right leg below knee; Z89.512 Acquired absence of left leg below knee; Y83.5 Amputation of limb(s) as the cause of abnormal reaction of the patient, or of later complication, without mention of misadventure at the time of the procedure
CPT/HCPCS: 36569; 76937; 80053; 80202; 85025; 85610; 85730; 96365; 96368; 96372; 99285; G0378; J0692; J3370; J7050

== ENCOUNTER 2017-11-02 18:04 | Emergency (ER) | payer OTHER ==
[~2017-11-02] VITALS: Ht 172.7 cm; Wt 68.0 kg
[~2017-11-02 18:04] MED LIST changes: +AMIT25TA9 PO; +ASPI-516 CHEW; +CARV25TA; +CEFE1INJ2 IV; +CLOP75TA PO; +COLL30T TOPICAL; -HYDR-3534 PO; +LISI40TA PO; -NIFE1TAB86 PO; +VANC1000P IV
[2017-11-02 18:13] VITALS: BP 131/68; PULSE 91; RESP 18; TEMP 98; O2SAT 99
--- NOTE | 2017-11-02 18:43 | PD ---
HPI Chief Complaint: [employer] Problem Time Seen by Provider: 18:35 Travel History International Travel<30 days: No Contact w/Intl Traveler<30days: No Traveled to known affect area: No History of Present Illness HPI Patient is a 47-year-old male who comes in because he says his PICC line is not working. He says that a home health aide came to flush it and was unable to and told him to come to the emergency department. He has no other complaints at this time. Denies any pain or fevers. Severity is mild. PFSH Past Medical History Hx Anticoagulant Therapy: Yes Asthma: No Blood Disorders: No Anxiety: Yes Depression: Yes Heart Rhythm Problems: No Cancer: No Cardiac Catheterization: Yes Cardiovascular Problems: Yes High Cholesterol: Yes Chemotherapy: No Chest Pain: No Congestive Heart Failure: No COPD: No Cerebrovascular Accident: Yes Coronary Artery Disease: Yes Diabetes: Yes Patient Takes Glucophage: Yes Diminished Hearing: No Endocrine: No Genitourinary: No Hypertension: Yes Immune Disorder: No Musculoskeletal: Yes Neurologic: No Psychiatric: Yes Reproductive: No Respiratory: No Immunizations Current: No Myocardial Infarction: Yes Radiation Therapy: No Seizures: Yes Sleep Apnea: No Thyroid Disease: No Past Surgical History Cardiac Surgery: Yes (stent) Coronary Stent: Yes Thoracic Surgery: Yes (stent right leg) Other Surgery: Yes (PICC line placement, stent in right leg) Social History Alcohol Use: No Tobacco Use: Yes (trying to quit) Substance Use: No Allergies-Medications (Allergen,Severity, Reaction): Coded Allergies: No Known Allergies (Verified Adverse Reaction, Unknown, 10/26/17) Reported Meds & Prescriptions Reported Meds & Active Scripts Active Hydrocodone-Acetamin 10-325 mg (Hydrocodone/Acetaminophen) 10 Mg-325 Mg Tablet 1 Tab PO TID Gabapentin 600 Mg Tab 600 Mg PO TID Reported Santyl Topical (Collagenase) 250 Unit/Gm Oint 1 Applic TOPICAL DAILY Cefepime Inj (Cefepime HCl) 1 Gm/50 Ml Bagp 1 Gm IV Q12H Vancomycin Inj (Vancomycin HCl) 1 Gram Inj 750 Mg IV DAILY Carvedilol 25 Mg Tab 25 Mg BID Clopidogrel (Clopidogrel Bisulfate) 75 Mg Tab 75 Mg PO DAILY Lisinopril 40 Mg Tab 40 Mg PO DAILY Aspirin 81 Mg Chew 81 Mg CHEW DAILY Amitriptyline (Amitriptyline HCl) 25 Mg Tab 25 Mg PO HS Eliquis (Apixaban) 5 Mg Tab 5 Mg PO BID Levemir Inj (Insulin Detemir) 1,000 unit/ 10 ML Vial 15 Units SQ DAILY Do not mix with any other Insulin. Humalog Inj (Insulin Human Lispro) 1,000 Unit/10 Ml Vial SQ DIRECTED PRN Max dose at bedtime:( )units; sugars< 70,(0)units; sugars 150-199,(1)unit; sugars 200-249,(3)units; sugars 250-299,(5)units; sugars 300-349,(7)units; sugars more than 349,(9)units. Review of Systems General / Constitutional: No: Fever, Chills HENT: No: Headaches, Lightheadedness Cardiovascular: No: Chest Pain or Discomfort Respiratory: No: Shortness of Breath Gastrointestinal: No: Nausea, Vomiting Musculoskeletal: No: Myalgias Skin: No Rash, No Change in Pigmentation Neurologic: No: Weakness, Dizziness Physical Exam Narrative GENERAL: Awake and alert, no acute distress. SKIN: Focused skin assessment warm/dry. PICC line in place, no signs of infection. HEAD: Atraumatic. Normocephalic. EYES: Pupils equal and round. No scleral icterus. ENT: Mucous membranes pink and moist. CARDIOVASCULAR: Regular rate and rhythm. No murmur appreciated. RESPIRATORY: No accessory muscle use. Clear to auscultation. Breath sounds equal bilaterally. MUSCULOSKELETAL: No obvious deformities. No clubbing. No cyanosis. No edema. Bilateral BKA NEUROLOGICAL: Awake and alert. No obvious cranial nerve deficits. Motor grossly within normal limits. Normal speech. Data Data Last Documented VS Vital Signs Date Time Temp Pulse Resp B/P (MAP) Pulse Ox O2 Delivery O2 Flow Rate FiO2 11/02/17 18:24 98 18 99 11/02/17 18:13 98.0 131/68 (89) Orders Orders Ed Discharge Order (11/02/17 18:44) MDM Medical Decision Making Medical Screen Exam Complete: Yes Emergency Medical Condition: Yes Medical Record Reviewed: Yes Differential Diagnosis PICC line complication vs infection vs cellulitis Narrative Course Patient is a 47 year old male who comes in because he says his PICC line is clogged. He has no other complaints. PICC line flushed by RN. Patient has his medications at home. Advised to continue medications as prescribed. Advised to return to the ED as needed for any worsening symptoms. Diagnosis Primary Impression: Occluded PICC line Qualified Codes: T82.898A - Other specified complication of vascular prosthetic devices, implants and grafts, initial encounter Patient Instructions: General Instructions, Peripherally Inserted Central Catheters and Midline Catheters (ED) Additional Instructions: Take your medications as directed. Follow-up with your doctor. Return to the ED as needed for any worsening symptoms. Disposition: 01 DISCHARGE HOME Condition: Stable Sima José MD November 02, 2017 18:43
== END 2017-11-02 19:07 | disposition home or self-care (01) ==
LOC: NEPE 18:04
DX: T82.898A Other specified complication of vascular prosthetic devices, implants and grafts, initial encounter (principal); I10 Essential (primary) hypertension; E11.9 Type 2 diabetes mellitus without complications; E78.00 Pure hypercholesterolemia, unspecified; I25.10 Atherosclerotic heart disease of native coronary artery without angina pectoris; G40.909 Epilepsy, unspecified, not intractable, without status epilepticus; F41.8 Other specified anxiety disorders; Z72.0 Tobacco use; Z79.01 Long term (current) use of anticoagulants; Z79.4 Long term (current) use of insulin; Z87.39 Personal history of other diseases of the musculoskeletal system and connective tissue
CPT/HCPCS: 99282

== ENCOUNTER 2017-11-08 22:44 | Emergency (ER) | payer OTHER ==
[2017-11-08 22:49] VITALS: BP 133/73; PULSE 88; RESP 18; TEMP 97.8; O2SAT 98
[2017-11-08] MEDS ORDERED: ACETAMINOPHEN 325 MG TAB PO ONE (23:45)
--- NOTE | 2017-11-09 00:35 | RADRPT ---
EXAM DATE: 11/09/2017 12:24 AM EDT AGE/SEX: 47 years / Male INDICATIONS: Rib pain post fall. CLINICAL DATA: This is the patient's initial encounter. Patient reports that signs and symptoms have been present for 1 day and indicates a pain score of 10/10. MEDICAL/SURGICAL HISTORY: Hypercholesterolemia. Hypertension. Diabetes. Cerebrovascular acci dent. Myocardial infarction. Coronary artery disease. Heartburn. . Stent right leg. Picc line place ment. Coronary stent. Cardiac cath. [place] [facility] [place]. . FINDINGS: PA and lateral views of the chest demonstrate the lungs to be symmetrically aerated without evidence of mass, infiltrate or effusion. The cardiomediastinal contours are unremarkable. Chronic glenohumeral joint arthropathy demonstrated, right worse than left. No perceptible fracture o f the visualized osseous structures. CONCLUSION: No perceptible fracture. No evidence of acute cardiopulmonary disease. Electronically signed by: Jayce Maldonado MD 11/09/2017 12:34 AM EDT
[2017-11-09] MEDS ORDERED: TYLETAB34 PO (00:43)
--- NOTE | 2017-11-09 00:43 | PD ---
HPI Chief Complaint: Fall Time Seen by Provider: 23:31 Travel History International Travel<30 days: No Contact w/Intl Traveler<30days: No Traveled to known affect area: No History of Present Illness HPI Patient is a 47-year-old male presenting to the emergency department for evaluation of right-sided rib pain and bleeding from his right ear after he sustained a fall on . Patient states he was sitting on his shower chair when he leaned forward to lemon picker a red, subsequently fell and hit his right ribs and right ear. Patient states the bleeding from his ear will not stop. Patient denies any head injury or loss of consciousness, shortness of breath, abdominal pain, dizziness or weakness. Patient has bilateral BKA secondary to peripheral artery disease. He also has an old stroke which resulted in right-sided hemiparesis. Patient was evaluated by his home health nurse after the accident occurred. He reports his pain at the 5 out of 10, he describes the pain is sore. Worse with movement. No alleviating factors. Patient has not taken any medications to alleviate the pain. PFSH Past Medical History Hx Anticoagulant Therapy: Yes Anxiety: Yes Depression: Yes Cardiac Catheterization: Yes Cardiovascular Problems: Yes High Cholesterol: Yes Cerebrovascular Accident: Yes Coronary Artery Disease: Yes Diabetes: Yes Hypertension: Yes Implanted Vascular Access Dvce: Yes Musculoskeletal: Yes Myocardial Infarction: Yes Seizures: Yes Tetanus Vaccination: Unknown Influenza Vaccination: No Past Surgical History Cardiac Surgery: Yes (stent) Coronary Stent: Yes Thoracic Surgery: Yes (stent right leg) Other Surgery: Yes (PICC line placement, stent in right leg) Social History Alcohol Use: No Tobacco Use: Yes Substance Use: No Allergies-Medications (Allergen,Severity, Reaction): Coded Allergies: No Known Allergies (Verified Adverse Reaction, Unknown, 11/08/17) Reported Meds & Prescriptions Reported Meds & Active Scripts Active Hydrocodone-Acetamin 10-325 mg (Hydrocodone/Acetaminophen) 10 Mg-325 Mg Tablet 1 Tab PO TID Gabapentin 600 Mg Tab 600 Mg PO TID Reported Santyl Topical (Collagenase) 250 Unit/Gm Oint 1 Applic TOPICAL DAILY Cefepime Inj (Cefepime HCl) 1 Gm/50 Ml Bagp 1 Gm IV Q12H Vancomycin Inj (Vancomycin HCl) 1 Gram Inj 750 Mg IV DAILY Carvedilol 25 Mg Tab 25 Mg BID Clopidogrel (Clopidogrel Bisulfate) 75 Mg Tab 75 Mg PO DAILY Lisinopril 40 Mg Tab 40 Mg PO DAILY Aspirin 81 Mg Chew 81 Mg CHEW DAILY Amitriptyline (Amitriptyline HCl) 25 Mg Tab 25 Mg PO HS Eliquis (Apixaban) 5 Mg Tab 5 Mg PO BID Levemir Inj (Insulin Detemir) 1,000 unit/ 10 ML Vial 15 Units SQ DAILY Do not mix with any other Insulin. Humalog Inj (Insulin Human Lispro) 1,000 Unit/10 Ml Vial SQ DIRECTED PRN Max dose at bedtime:( )units; sugars< 70,(0)units; sugars 150-199,(1)unit; sugars 200-249,(3)units; sugars 250-299,(5)units; sugars 300-349,(7)units; sugars more than 349,(9)units. Review of Systems Except as stated in HPI: all other systems reviewed are Neg General / Constitutional: No: Fever Eyes: No: Blurred Vision HENT: Positive: Ear Discharge, No: Headaches Cardiovascular: No: Chest Pain or Discomfort Respiratory: Positive: Pleuritic Pain, No: Shortness of Breath Gastrointestinal: No: Nausea, Abdominal Pain Physical Exam Narrative GENERAL: Well-developed, well-nourished, alert -[place] male. Presenting in no acute distress. SKIN: Warm and dry. Superficial abrasion to right outer ear. HEAD: Atraumatic. Normocephalic. EYES: Pupils equal and round. No scleral icterus. No injection or drainage. ENT: No nasal bleeding or discharge. Mucous membranes pink and moist. NECK: Trachea midline. No JVD. CARDIOVASCULAR: Regular rate and rhythm. RESPIRATORY: No accessory muscle use. Clear to auscultation. Breath sounds equal bilaterally. GASTROINTESTINAL: Abdomen soft, non-tender, nondistended. Hepatic and splenic margins not palpable. MUSCULOSKELETAL: Extremities without clubbing, cyanosis, or edema. No obvious deformities. Bilateral BKA. NEUROLOGICAL: Awake and alert. No obvious cranial nerve deficits. Motor grossly within normal limits. Five out of 5 muscle strength in the left arms and legs. Right hemiparesis. Normal speech. PSYCHIATRIC: Appropriate mood and affect; insight and judgment normal. Data Data Last Documented VS Vital Signs Date Time Temp Pulse Resp B/P (MAP) Pulse Ox O2 Delivery O2 Flow Rate FiO2 11/08/17 22:49 97.8 88 18 133/73 (93) 98 Orders Orders Chest, Pa & Lat (11/08/17 ) Acetaminophen (Tylenol) (11/08/17 23:45) MDM Medical Decision Making Medical Screen Exam Complete: Yes Emergency Medical Condition: Yes Interpretation(s) Vital Signs Date Time Temp Pulse Resp B/P (MAP) Pulse Ox O2 Delivery O2 Flow Rate FiO2 11/08/17 22:49 97.8 88 18 133/73 (93) 98 Differential Diagnosis Contusion versus fracture versus laceration versus abrasion versus other Narrative Course Patient is a 39-year-old male with multiple medical problems presenting after mechanical fall 3 days ago. Patient's vital signs are stable. Chest x-ray which is read by the radiologist shows no perceptible fracture. No evidence of acute cardiopulmonary disease. Patient was given acetaminophen for pain. He was reassured that there was no acute findings in his ear and that it was a superficial abrasion to the outer ear. He was encouraged to follow-up with his primary doctor or return to emergency department for any new or worsening symptoms. He verbalized understanding of these instructions. Patient stable for discharge. Diagnosis Primary Impression: Fall Qualified Codes: W19.XXXA - Unspecified fall, initial encounter Additional Impressions: Rib pain on right side Abrasion of right ear Qualified Codes: S00.411A - Abrasion of right ear, initial encounter Referrals: Primary Care Physician 1 week Patient Instructions: Abrasion (ED), General Instructions, Rib Contusion (ED) Additional Instructions: Follow-up with your primary doctor Take medication as needed and as directed for pain Return to emergency department for any new or worsening symptoms Med/Other Pt SpecificInfo: Prescription(s) given Scripts Acetaminophen-Codeine (Tylenol-Codeine #3) 300-30 mg Tab 1 TAB PO Q6H Y for PAIN, #10 TAB 0 Refills Prov: Saumya Hazel 11/09/17 Disposition: 01 DISCHARGE HOME Condition: Stable Saumya Hazel November 09, 2017 00:43
== END 2017-11-09 00:59 | disposition home or self-care (01) ==
LOC: NEPD 22:44
DX: S00.411A Abrasion of right ear, initial encounter (principal); R07.81 Pleurodynia; E11.51 Type 2 diabetes mellitus with diabetic peripheral angiopathy without gangrene; I10 Essential (primary) hypertension; W07.XXXA Fall from chair, initial encounter; Z72.0 Tobacco use; Z79.4 Long term (current) use of insulin
CPT/HCPCS: 71046; 99283

== ENCOUNTER 2017-12-28 18:05 | Inpatient (IN) ==
[2017-12-28] MEDS ORDERED: Sod Chloride 0.9% Inj 1,000 ML IV.CONT SCH (18:45)
--- NOTE | 2017-12-28 18:54 | XR ---
EXAM DATE: 12/28/2017 6:47 PM EDT AGE/SEX: 47 years / Male INDICATIONS: Chest pain CLINICAL DATA: This is the patient's initial encounter. Patient reports that signs and symptoms have been present for 3 days and indicates a pain score of 3/10. MEDICAL/SURGICAL HISTORY: Stroke. : Hypercholesterolemia. Hypertension. Diabetes. Cerebrovascul ar accident. Myocardial infarction. Coronary artery disease. Heartburn. CABG. Stent right leg. Picc line placement. Coronary stent. Cardiac cath. Bilateral lower leg amputations [place] [facility] [place] . FINDINGS: The patient is status post sternotomy. The heart size is normal. The lungs are grossly clear. No effu artie is seen. There is chronic change seen at the right glenohumeral joint. CONCLUSION: No acute cardiopulmonary process. Electronically signed by: Jayce Paiz MD 12/28/2017 6:52 PM EDT
[2017-12-28] MEDS ORDERED: Sodium Chlor 0.9% Inj 500 ML IV.SIG ONE (19:15)
[2017-12-28 19:27] LABS: Baso % (Auto) 0.6 % (0.0-2.0); Eos # (Auto) 0.2 th/mm3 (0.0-0.4); Eos % (Auto) 2.5 % (0.0-4.0); Hematocrit 31.5 % (39.0-51.0); Hemoglobin 10.2 gm/dL (13.0-17.0); Lymph # (Auto) 2.5 th/mm3 (1.0-4.8); Lymph % (Auto) 28.5 % (9.0-44.0); Mean Corpuscular HGB Conc 32.4 % (32.0-36.0); Mean Corpuscular Hemoglobin 26.5 pg (27.0-34.0); Mean Corpuscular Volume 81.9 fL (80.0-100.0); Mean Platelet Volume 9.4 fL (7.0-11.0); Mono # (Auto) 0.7 th/mm3 (0.0-0.9); Mono % (Auto) 7.6 % (0.0-8.0); Neut # (Auto) 5.4 th/mm3 (1.8-7.7); Neut % (Auto) 60.8 % (16.0-70.0); Platelet Count 343 th/mm3 (150-450); Red Blood Count 3.85 mil/mm3 (4.50-5.90); Red Cell Distribution Width 15.3 % (11.6-17.2); White Blood Count 8.8 th/mm3 (4.0-11.0)
[2017-12-28 19:37] LABS: Activated Partial Thrombo Time 25.5 sec (24.3-30.1); INR 1.1 Ratio; Prothrombin Time 11.3 sec (9.8-11.6)
[2017-12-28 19:40] LABS: Albumin 3.1 g/dL (3.4-5.0); Anion Gap 9 meq/L (5-15); Aspartate Aminotransferase 13 U/L (15-37); Blood Urea Nitrogen 13 mg/dL (7-18); Calcium 8.6 mg/dL (8.5-10.1); Carbon Dioxide 25.6 meq/L (21.0-32.0); Chloride 106 meq/L (98-107); Glomerular Filtration Rate Greater Than 89 mL/min (>89); Glucose,Random 116 mg/dL (74-106); Potassium 3.8 meq/L (3.5-5.1); Sodium 141 meq/L (136-145)
[2017-12-28 19:41] LABS: Alanine Aminotransferase 17 U/L (12-78)
[2017-12-28 19:44] LABS: Alkaline Phosphatase 128 U/L (45-117); Creatine Kinase 107 U/L (39-308); Troponin I 0.04 ng/mL (0.02-0.05)
[2017-12-28 19:56] LABS: Creatine Kinase MB 1.6 ng/mL (0.5-3.6)
--- NOTE | 2017-12-28 20:14 | ED ---
HPI General Chief complaint: Neuro Symptoms/Deficit Stated complaint: Evac/Weakness Time Seen by Provider: 12/28/17 18:19 Source: patient Mode of arrival: EMS Limitations: other (poor historian) History of Present Illness HPI narrative: 47-year-old male the presents to the ED for evaluation of right- sided facial droop as well as blurry vision and weakness. Patient has a history of CVA as well as ACS. Per patient he is also been having chest pains the past couple of days. Per patient he follows with a bricklayer apprentice in [place]. Denies any urinary or bowel movement issues. Patient has a history of amputations to both lower legs. Patient states that he had surgery about 3 months ago. Per patient initially he told ambulance that he had a heart transplant but when I questioned him about it again he states that he actually had a CABG. I did review patient's medical records and he has been here within the past 3 months and there has never been any mention of a heart transplant. He states that the symptoms have been ongoing for 3 days. Nothing seems to make it better or worse. His main concern seems to be the right facial droop and slurred speech as well as blurry vision. Patient does have a history of CVA with right-sided weakness but this appears to be new per family and patient. Patient does take Eliquis. Related Data Home Medications Medication Instructions Recorded Confirmed apixaban [Eliquis] 5 mg PO BID 12/28/17 12/28/17 aspirin 10 mg PO DAILY 12/28/17 12/28/17 atorvastatin 40 mg PO DAILY 12/28/17 12/28/17 folic acid 1 mg PO DAILY 12/28/17 12/28/17 gabapentin 600 mg PO TID 12/28/17 12/28/17 hydrocodone-acetaminophen [Burkett] 1 tab PO Q6H PRN 12/28/17 12/28/17 insulin detemir U-100 [Levemir 15 units SUB-Q BID 12/28/17 12/28/17 U-100 Insulin] insulin lispro [Humalog U-100 1 sliding scale dose SUB-Q UD 12/28/17 12/28/17 Insulin] lisinopril 30 mg PO BID 12/28/17 12/28/17 metformin 500 mg PO BID 12/28/17 12/28/17 nifedipine 60 mg PO DAILY 12/28/17 12/28/17 pravastatin 10 mg PO DAILY 12/28/17 12/28/17 trazodone 100 mg PO DAILY 12/28/17 12/28/17 Allergies Allergy/AdvReac Type Severity Reaction Status Date / Time No Known Allergies AdvReac Unknown Uncoded 11/08/17 22:48 Review of Systems ROS Unobtainable All other systems reviewed negative except as stated in [facility] Medical History Medical History Amputation leg, bilat (Acute) Diabetes (Acute) Hypercholesteremia (Acute) Hypertension (Acute) Stroke (Acute) Social History Social History Substance History: No History of Abuse Second Hand Smoke Exposure: Yes Smoking Status: Current every day smoker Tobacco Type: Cigarettes How Often Do You Have a Drink Containing Alcohol: Never Recent Travel in [facility] within the Last 8 Weeks: No Recent Out of Country Travel within the Last 8 Weeks: No Immunization History Tetanus Immunization: Unsure Hx Influenza Vaccine This Season: No Exam Narrative Exam Narrative: GENERAL: Well-appearing SKIN: Focused skin assessment warm/dry. HEAD: Atraumatic. Normocephalic. EYES: Pupils equal and round 4 mms reactive to light and accommodation. No scleral icterus. No injection or drainage. ENT: No nasal bleeding or discharge. Mucous membranes pink and moist. Tongue is midline. Some drooping noted on the right side of the face compared to the left. NECK: Trachea midline. No JVD. CARDIOVASCULAR: Regular rate and rhythm. No murmur appreciated. RESPIRATORY: No accessory muscle use. Clear to auscultation. Breath sounds equal bilaterally. GASTROINTESTINAL: Abdomen soft, non-tender, nondistended. Hepatic and splenic margins not palpable. MUSCULOSKELETAL: No obvious deformities. No clubbing. No cyanosis. No edema. Full range of motion of the left upper extremity as well as the lower extremities with exception of the right upper and right lower secondary to chronic CVA weakness. Patient has BKA stump on lower legs. NEUROLOGICAL: Awake and alert. No obvious cranial nerve deficits. Motor grossly within normal limits. Some slight slurring noted.. PSYCHIATRIC: Appropriate mood and affect; insight and judgment normal. Course Initial Documented Vital Signs Temperature 98.9 F 12/28/17 18:13 Pulse Rate 85 07/15/18 18:13 Respiratory Rate 16 12/28/17 18:13 Blood Pressure 100/56 L 12/28/17 18:13 Pulse Oximetry 99 12/28/17 18:13 Last Documented Vital Signs Temperature 98.9 F 12/28/17 18:13 Pulse Rate 84 12/28/17 19:22 Respiratory Rate 16 12/28/17 19:22 Blood Pressure 102/76 12/28/17 19:22 Pulse Oximetry 100 12/28/17 19:43 Medical Decision Making KAREN Attestation KAREN supervised visit: Yes Attestation: I, Dr. Jessica, have reviewed the advance practice practitioner's documentation and am in agreement, met with the patient face to face, made the diagnosis, and the medical decision making was done by me. The patient was initially evaluated by Earl, kelly PA. Please see their complete history and physical. *My assessment and Findings: The patient presents with reported history of 3 days of drooling out of the right side of his mouth, slurred speech, tingling sensations to the right side of his face. He denies having any symptoms in his right arm or right leg. The patient additionally reports having right-sided upper back pain and shortness of breath. Patient reports that he underwent three-vessel coronary artery bypass graft proximally 3 months ago. He reports that this was done by bricklayer apprentice in [place]. Patient additionally reports having a right below the knee amputation done 4 months ago. Prior to that he had a left below the knee amputation. Patient reports that he has been taking his Eliquis as prescribed. He reports that he did take it earlier today. During the course of the patient's emergency department visit, the patient's history, examination, and differential diagnosis were reviewed with the patient. The patient was placed on a landman with oximetry and frequent blood pressure monitoring. The patient had [-] IV access obtained and blood work sent for analysis. The patient had an EKG done that confirmed a normal sinus rhythm without any acute changes. The patient's laboratory studies were reviewed and remarkable for a white count of 8.8, hemoglobin is 10.2, platelets are 343, with a normal differential. PT PTT within normal limits, with a normal differential CMP is remarkable for a glucose of 116, AST 13, alk phos 128, albumin 3.1. CPK is 107 with a normal MB , troponin I 0.04 Radiology studies were reviewed and remarkable for a chest x-ray that shows no acute cardiopulmonary disease, CT scan of the brain shows a new small area of low density at the posterior left basal ganglia with low density centrally and to the posterior limb of the internal capsule likely representing a prior/ recent lacunar infarct, significant mass-effect or hemorrhage is not seen, right parietal encephalomalacia from prior insult, no other acute abnormality. The patient's results were discussed with the patient, including the plan of care. I explained that further testing and/ or monitoring is indicated based on the patient's history, examination, and/ or laboratory findings. Therefore, I recommended admission for additional evaluation. The patient expressed understanding and was agreeable with this plan. The patient was admitted to the hospital in guarded condition and sent to a bed under the care of [facility] service. MDM Narrative Medical decision making narrative: 47-year-old male the presents to the ED for evaluation of possible neurological deficits and chest pain. Patient was properly examined and was found to have signs and symptoms concerning for possible new onset CVA. Symptoms have been ongoing for 3 days now. Outside of the window for TPA. Patient also takes Eliquis already. Case was discussed with my attending who agrees with plan. Labs and imaging were ordered. Labs and imaging show what appears to be possible new CVA. At this time recommendations for admission for further evaluation. Patient agrees. Case discussed with my attending Dr. Jessica who agrees with admission. Labs otherwise unremarkable at this time. Case discussed with Dr. Michelle who agrees to admission. Differential Diagnosis Differential Diagnosis: CVA versus TIA versus chronic weakness versus sepsis versus chest pain versus ACS Medical Records Medical records reviewed: Yes I reviewed the patient's medical records. Lab Data Lab results reviewed: Yes I reviewed the patient's lab results. Lab results narrative: Troponin and CK-MB negative. Result diagrams: 12/28/17 18:40 12/28/17 18:40 Lab Results 12/28/17 12/28/17 12/28/17 Range/Units 18:40 18:40 18:40 WBC 8.8 (4.0-11.0) th/mm3 RBC 3.85 L (4.50-5.90) mil/mm3 Hgb 10.2 L (13.0-17.0) gm/dL Hct 31.5 L (39.0-51.0) % MCV 81.9 (80.0-100.0) fL MCH 26.5 L (27.0-34.0) pg MCHC 32.4 (32.0-36.0) % RDW 15.3 (11.6-17.2) % Plt Count 343 (150-450) th/mm3 MPV 9.4 (7.0-11.0) fL Neut % (Auto) 60.8 (16.0-70.0) % Lymph % (Auto) 28.5 (9.0-44.0) % Winston % (Auto) 7.6 (0.0-8.0) % Eos % (Auto) 2.5 (0.0-4.0) % Baso % (Auto) 0.6 (0.0-2.0) % Neut # (Auto) 5.4 (1.8-7.7) th/mm3 Lymph # (Auto) 2.5 (1.0-4.8) th/mm3 Winston # (Auto) 0.7 (0.0-0.9) th/mm3 Eos # (Auto) 0.2 (0.0-0.4) th/mm3 Baso # (Auto) 0.0 (0.0-0.2) th/mm3 WBC Differential . Differential Comment Auto diff final PT 11.3 (9.8-11.6) sec INR 1.1 Ratio APTT 25.5 (24.3-30.1) sec Sodium 141 (136-145) meq/L Potassium 3.8 (3.5-5.1) meq/L Chloride 106 (98-107) meq/L Carbon Dioxide 25.6 (21.0-32.0) meq/L Anion Gap 9 (5-15) meq/L BUN 13 (7-18) mg/dL Creatinine 1.05 (0.60-1.30) mg/dL Estimated GFR Greater than 89 (>89) mL/min Random Glucose 116 H (74-106) mg/dL Calcium 8.6 (8.5-10.1) mg/dL Total Bilirubin 0.3 (0.2-1.0) mg/dL AST 13 L (15-37) U/L ALT 17 (12-78) U/L Alkaline Phosphatase 128 H (45-117) U/L Total Creatine Kinase 107 (39-308) U/L CK-MB (CK-2) 1.6 (0.5-3.6) ng/mL Troponin I 0.04 (0.02-0.05) ng/mL Total Protein 7.0 (6.4-8.2) g/dL Albumin 3.1 L (3.4-5.0) g/dL Imaging Data Attestation: I personally reviewed and interpreted this imaging study as follows : Radiologist's impression: Chest X-Ray 12/28/17 18:31 CONCLUSION: No acute cardiopulmonary process. Head CT 12/28/17 18:31 CONCLUSION: 1. New small area of low density at the posterior left basal ganglia with low density centrally into the posterior limb of the internal capsule likely from prior/recent lacunar infarct. Significant mass effect or hemorrhage is not seen. 2. Right parietal encephalomalacia from prior insult. This finding was present previously. 3. No acute areas of hemorrhage or mass effect are seen. ECG Data EKG Prior to Arrival: No Interpretation: EKG shows sinus rhythm with no sign of acute ischemia or arrhythmia noted by me and attending. No changes from prior. Discharge Plan Discharge Disposition Patient Disposition: 30 Still Patient Discharge Details Diagnosis: Acute CVA (cerebrovascular accident), Chest pain Physicians Team ED Provider: Nancy Jessica ED Midlevel Provider: Earl Fontana Primary Care Provider: Dionicio José Attending Provider: Brunilda Michelle Status ED Status: Admitted Patient
--- NOTE | 2017-12-28 20:59 | CT ---
EXAM DATE: 12/28/2017 7:39 PM EDT AGE/SEX: 47 years / Male INDICATIONS: Right sided facial droop and blurred vision. CLINICAL DATA: This is the patient's initial encounter. Patient reports that signs and symptoms have been present for 1 day and indicates a pain score of 6/10. MEDICAL/SURGICAL HISTORY: Hypertension. Diabetes. Cerebrovascular disease. . Bilateral BKA, Heart transplant RADIATION DOSE: 56.35 CTDI (mGy) COMPARISON: [facility] – [place] BRAIN [place]/O CONTRAST, 06/20/2015. . TECHNIQUE: CT of the head without contrast. Using automated exposure control and adjustment of the mA and/or kV according to patient size, radiation dose was kept as low as reasonably achievable to ob tain optimal diagnostic quality images. DICOM format image data is available electronically for revi ew and comparison. FINDINGS: Cerebrum: There is an area of encephalomalacia at the posterior inferior right parietal lobe. This w as present previously. There is a lacunar infarct at the posterior left basal ganglia with low-densit y extending superiorly into the posterior horn of the left internal capsule. This was not present pre viously. The ventricles are normal for age. No evidence of midline shift, mass lesion, hemorrhage. No extraaxial fluid collections are seen. Posterior Fossa: The cerebellum and brainstem are intact. The 4th ventricle is midline. The cerebe llopontine angle is unremarkable. Extracranial: The visualized portion of the orbits is intact. Skull: The calvaria is intact. No evidence of skull fracture. CONCLUSION: 1. New small area of low density at the posterior left basal ganglia with low density centrally into the posterior limb of the internal capsule likely from prior/recent lacunar infarct. Significant mas s effect or hemorrhage is not seen. 2. Right parietal encephalomalacia from prior insult. This finding was present previously. 3. No acute areas of hemorrhage or mass effect are seen. Electronically signed by: Jayce Paiz MD 12/28/2017 8:57 PM EDT
[2017-12-28] MEDS ORDERED: Dextrose 50% in Water 50 ML Vial IV.PUSH PRN (21:22)
--- NOTE | 2017-12-28 21:50 | P.HPIM ---
History of Present Illness Primary Care Physician: Dionicio José MD History of Present Illness: This is a 47-year-old male with a PMH of HTN, DM, CVA with Residual Right-Sided Weakness and Bilateral BKA who presented to the ER w/ complaints of facial droop and drooling x3 days. Did not seek medical attention until now. On ASA and Eliquis 5mg bid, reports compliance w/ medications. Denies motor weakness besides residual symptoms from prior CVA. On arrival, BP 100/56, HR 85, O2 sat 99% on RA, Afebrile. CBC essentially unremarkable. Chemistry essentially unremarkable. INR 1.1. CT Head new area of low density left basal ganglia with low density centrally into posterior limb of internal capsule likely from prior/recent lacunar infarct, no mass-effect or hemorrhage. - Diagnosis (1) CVA (cerebral vascular accident) (2) HTN (hypertension) (3) DM (diabetes mellitus) Inpatient Certification: I certify that the inpatient services were ordered in accordance with Medicare regulations governing the order. This includes certification that hospital inpatient services are reasonable and necessary and in the case of services not specified as inpatient-only under 42 CFR 419.22(n), that they are appropriately provided as inpatient services in accordance to with the 2-midnight benchmark under 43 CFR 412.3(e) Estimated Total Length of Stay (Days): 2 Plans for Post Hospital Care: Not yet determined Review of Systems All other systems reviewed negative except as stated [facility] - History History Provided By: Patient - Medical History Medical History: Medical History (Last Reviewed 12/28/17 @ 20:12 by GERARDO Silva) Amputation leg, bilat Diabetes Hypercholesteremia Hypertension Stroke - Tobacco History Second Hand Smoke Exposure: Yes Tobacco Use In Past 30 Days: Yes Smoking Status: Current every day smoker Tobacco Type: Cigarettes - Alcohol History How Often Do You Have a Drink Containing Alcohol: Never - Substance Use History Substance History: No History of Abuse - Travel History Recent Travel in the [place] Within the Last 8 Weeks: No Recent Travel Out of the Country Within the Last 8 Weeks: No - Immunization History Tetanus Immunization: Unsure Hx Influenza Vaccine This Season: No Medications and Allergies Active Medications: Active Medications Aspirin (Aspirin Supp) 300 mg RECTAL DAILY LEONA Dextrose (D50w Vial) 50 ml IV.PUSH UNSCH PRN PRN Reason: PER HYPOGLYCEMIA PROTOCOL Enalaprilat (Vasotec Inj) 1.25 mg IV.PUSH Q4H PRN PRN Reason: For SBP > 220 or DBP > 120 Glucagon (Glucagon Inj) 1 mg OTHER UNSCH PRN PRN Reason: for Hypoglycemia Protocol Sodium Chloride (Ns Inj) 1,000 mls @ 70 mls/hr IV.CONT .[id number] LEONA Stop: 12/29/17 09:02 Insulin Aspart (Novolog Insulin Suppl Scale Inj) 0 unit SQ ACHS LEONA; Protocol Sodium Chloride (Ns Flush) 2 ml IV.FLUSH PRN PRN PRN Reason: FLUSH AFTER USING IV ACCESS Sodium Chloride (Ns Flush) 2 ml IV.FLUSH BID LEONA Sodium Chloride (Ns Flush) 2 ml IV.FLUSH PRN PRN PRN Reason: FLUSH AFTER USING IV ACCESS Allergies Allergy/AdvReac Type Severity Reaction Status Date / Time No Known Allergies AdvReac Unknown Uncoded 11/08/17 22:48 Home Medications Medication Instructions Recorded Confirmed Type apixaban [Eliquis] 5 mg PO BID 12/28/17 12/28/17 History aspirin 10 mg PO DAILY 12/28/17 12/28/17 History atorvastatin 40 mg PO DAILY 12/28/17 12/28/17 History folic acid 1 mg PO DAILY 12/28/17 12/28/17 History gabapentin 600 mg PO TID 12/28/17 12/28/17 History hydrocodone-acetaminophen [Cors[place]] 1 tab PO Q6H PRN 12/28/17 12/28/17 History insulin detemir U-100 [Levemir 15 units SUB-Q BID 12/28/17 12/28/17 History U-100 Insulin] insulin lispro [Humalog U-100 1 sliding scale dose SUB-Q UD 12/28/17 12/28/17 History Insulin] lisinopril 30 mg PO BID 12/28/17 12/28/17 History metformin 500 mg PO BID 12/28/17 12/28/17 History nifedipine 60 mg PO DAILY 12/28/17 12/28/17 History pravastatin 10 mg PO DAILY 12/28/17 12/28/17 History trazodone 100 mg PO DAILY 12/28/17 12/28/17 History Exam Vital signs: Vital Signs 12/28/17 18:13 12/28/17 19:22 12/28/17 19:43 Temperature 98.9 F Pulse Rate 85 84 Respiratory Rate 16 16 Blood Pressure 100/56 L 102/76 Pulse Oximetry 99 100 100 Intake & Output 12/28/17 12/28/17 12/29/17 06:59 18:59 06:59 Weight 70.307 kg Narrative: PE: GENERAL: Very pleasant young black male in no acute distress. HEENT: PERRLA, EOMI. No scleral icterus or conjunctival pallor. +facial droop, ongoing drooling. CARDIOVASCULAR: Regular rate and rhythm. No obvious murmurs to auscultation. No chest tenderness to palpation. RESPIRATORY: No obvious rhonchi or wheezing. Clear to auscultation. Breath sounds equal bilaterally. GASTROINTESTINAL: Abdomen soft, non-tender, nondistended. BS normal. MUSCULOSKELETAL: Extremities without clubbing, cyanosis, or edema. No obvious deformities. Bilateral BKA NEUROLOGICAL: Awake, alert and oriented x4. No new focal neurologic deficits, previous right-sided hemiparesis stable. Moving both upper and lower extremities spontaneously. Results - Labs CBC & Chem 7: 12/28/17 18:40 12/28/17 18:40 Labs: Short CBC 12/28/17 Range/Units 18:40 WBC 8.8 (4.0-11.0) th/mm3 Hgb 10.2 L (13.0-17.0) gm/dL Hct 31.5 L (39.0-51.0) % Plt Count 343 (150-450) th/mm3 BMP 12/28/17 18:40 Sodium 141 Potassium 3.8 Chloride 106 Carbon Dioxide 25.6 BUN 13 Creatinine 1.05 Calcium 8.6 Cardiac Enzymes 12/28/17 Range/Units 18:40 Total Creatine Kinase 107 (39-308) U/L CK-MB (CK-2) 1.6 (0.5-3.6) ng/mL Troponin I 0.04 (0.02-0.05) ng/mL Liver Function 12/28/17 Range/Units 18:40 Total Bilirubin 0.3 (0.2-1.0) mg/dL AST 13 L (15-37) U/L ALT 17 (12-78) U/L Alkaline Phosphatase 128 H (45-117) U/L Albumin 3.1 L (3.4-5.0) g/dL - Imaging Impressions Chest X-Ray 12/28/17 18:31 CONCLUSION: No acute cardiopulmonary process. Head CT 12/28/17 18:31 CONCLUSION: 1. New small area of low density at the posterior left basal ganglia with low density centrally into the posterior limb of the internal capsule likely from prior/recent lacunar infarct. Significant mass effect or hemorrhage is not seen. 2. Right parietal encephalomalacia from prior insult. This finding was present previously. 3. No acute areas of hemorrhage or mass effect are seen. Caprini VTE Risk Assessment Caprini VTE Risk Assessment: Moderate/High Risk (score >= 2) Caprini Risk Assessment Model: Point Value = 1 Point Value = 2 Point Value = 3 Point Value = 5 Age 41-60 Minor surgery BMI > 25 kg/m2 Swollen legs Varicose veins or History of unexplained or recurrent spontaneous Oral contraceptives or hormone replacement Sepsis (< 1 month) Serious lung disease, including pneumonia (< 1 month) Abnormal pulmonary function Acute myocardial infarction Congestive heart failure (< 1 month) History of inflammatory bowel disease Medical patient at bed rest Age 61-74 Arthroscopic surgery Major open surgery (> 45 min) Laparoscopic surgery (> 45 min) Malignancy Confined to bed (> 72 hours) Immobilizing plaster cast Central venous access Age >= 75 History of VTE Family history of VTE Factor V Leiden Prothrombin [id number] Lupus anticoagulant Anticardiolipin antibodies Elevated serum homocysteine Heparin-induced thrombocytopenia Other congenital or acquired thrombophilia Stroke (< 1 month) Elective arthroplasty Hip, pelvis, or leg fracture Acute spinal cord injury (< 1 month) Prophylaxis Regimen: Total Risk Factor Score Risk Level Prophylaxis Regimen 0-1 Low Early ambulation 2 Moderate Order ONE of the following: *Sequential Compression Device (SCD) *Heparin 5000 units SQ BID 3-4 Higher Order ONE of the following medications: *Heparin 5000 units SQ TID *Enoxaparin/Lovenox 40 mg SQ daily (WT < 150 kg, CrCl > 30 mL/min) *Enoxaparin/Lovenox 30 mg SQ daily (WT < 150 kg, CrCl > 10-29 mL/min) *Enoxaparin/Lovenox 30 mg SQ BID (WT < 150 kg, CrCl > 30 mL/min) AND/OR *Sequential Compression Device (SCD) 5 or more Highest Order ONE of the following medications: *Heparin 5000 units SQ TID (Preferred with Epidurals) *Enoxaparin/Lovenox 40 mg SQ daily (WT < 150 kg, CrCl > 30 mL/min) *Enoxaparin/Lovenox 30 mg SQ daily (WT < 150 kg, CrCl > 10-29 mL/min) *Enoxaparin/Lovenox 30 mg SQ BID (WT < 150 kg, CrCl > 30 mL/min) AND *Sequential Compression Device (SCD) Assessment and Plan - Assessment (1) CVA (cerebral vascular accident) Code(s): I63.9 - Cerebral infarction, unspecified Status: Acute (2) HTN (hypertension) Code(s): I10 - Essential (primary) hypertension Status: Acute (3) DM (diabetes mellitus) Code(s): E11.9 - Type 2 diabetes mellitus without complications Status: Acute - Plan A/P: 1. CVA: h/o CVA w/ Residual Right-Sided Hemiparesis, now w/ acute facial droop and drooling x3 days. On ASA and Eliquis, compliant w/ meds. CT Head w/ new low density lesion left basal ganglia, likely prior/recent lacunar infarct. Admit for further eval. Consult Neurology for further recommendations as pt on anticoagulation. Neuro checks, PT/Speech for eval/tx. Resume ASA and Eliquis for now. Continue Statin. Permissive HTN. 2. DM: Sliding scale w/ Accu-Cheks. Hold Metformin for now. 3. HTN: Monitor closely, permissive HTN at this time. 4. DVT Prophylaxis: SCD/Teds 5. Social work for d/c planning as needed 6. Case discussed w/ ER physician at length, labs/records/imaging reviewed by me.
[2017-12-29 00:37] LABS: Clarity,Urine Clear (Clear); Color,Urine Yellow (Yellw/Straw); Glucose,Urine (UA) Negative (Negative); Hyaline Casts,Urine 9 /lpf (0-3); Leukocyte Esterase,Urine Negative (Negative); Mucus,Urine Few /lpf (Occasional); Nitrite,Urine Negative (Negative)
[2017-12-29 00:38] LABS: Bilirubin,Urine Negative (Negative)
[2017-12-29] MEDS ORDERED: Morphine Sulfate Inj 2 MG/ML Vial IV.PUSH PRN (03:37)
[2017-12-29] MEDS ORDERED: Aspirin 300 MG Supp RECTAL SCH (09:00)
--- NOTE | 2017-12-29 09:00 | P.PN ---
Subjective Interval history: Follow-up visit HTN, DM, history of CVA with residual right-sided weakness, bilateral BKA, recent CABG December 01, 2017. Patient states he continues to drool , speech slurring continues but states it has improved slightly. Patient states that he wanted to go home, requesting to go home. He has been following up with his primary care doctor at [facility]. States that he also has an appointment tomorrow with [facility] in [facility] and he gets his physical therapy and speech therapy. Patient states that he recently had a CABG in November and is now on aspirin and Eliquis. States that he is also going to follow-up with his other doctor to have an x-ray of the left BKA and left shoulder. He also states that he is going to have an x-ray of his back. States that he has multiple appointments and do not want to miss it. States that if he could just follow-up in the outpatient he would do it. Discussed with patient extensively that his symptoms have not improved, he continues to drool and on his CT is a new area of low density in the left basal ganglia. This needs to be evaluated by neurology. Otherwise, denies pain and discomfort. Denies SOB/ dyspnea. Denies palpitations, headaches, dizziness. Denies fevers, chills, n/v/d. Denies dysuria. Physical Exam Vital signs: Vital Signs 12/28/17 18:13 12/28/17 19:22 12/28/17 19:43 Temperature 98.9 F Pulse Rate 85 84 Respiratory Rate 16 16 Blood Pressure 100/56 L 102/76 Pulse Oximetry 99 100 100 12/28/17 23:40 12/29/17 01:26 12/29/17 03:56 Temperature Pulse Rate 81 80 Respiratory Rate 16 18 18 Blood Pressure 133/85 142/85 H Pulse Oximetry 100 12/29/17 04:00 12/29/17 08:00 Temperature Pulse Rate 78 83 Respiratory Rate 18 16 Blood Pressure 171/79 H 162/86 H Pulse Oximetry 100 Intake & Output 12/28/17 12/29/17 12/29/17 18:59 06:59 18:59 Weight 70.307 kg Narrative: GENERAL: This is a well-nourished, well-developed patient, in no apparent distress. SKIN: Warm and dry HEENT: Normocephalic. Pupils equal round and reactive. Nose without bleeding. Airway patent. NECK: Trachea midline. CARDIOVASCULAR: Regular rate and rhythm without murmurs, gallops, or rubs. RESPIRATORY: Diminished breath sounds. No wheezes, rales, or rhonchi. GASTROINTESTINAL: Abdomen soft, non-tender, nondistended. Bowel Sounds normoactive x4. MUSCULOSKELETAL: Extremities without clubbing, cyanosis, or edema. NEUROLOGICAL: Awake and alert. Oriented to time, place, person. Right upper extremity hemiparesis, right lower extremity stump able to be moved. Left upper extremity and left lower extremity with movement spontaneously. Slow speech. Slurring at times but understandable. Results - Labs CBC & Chem 7: 12/28/17 18:40 12/28/17 18:40 Laboratory Results - last 24 hr 12/28/17 12/28/17 12/28/17 18:40 18:40 18:40 WBC 8.8 RBC 3.85 L Hgb 10.2 L Hct 31.5 L MCV 81.9 MCH 26.5 L MCHC 32.4 RDW 15.3 Plt Count 343 MPV 9.4 Neut % (Auto) 60.8 Lymph % (Auto) 28.5 [place] % (Auto) 7.6 Eos % (Auto) 2.5 Baso % (Auto) 0.6 Neut # (Auto) 5.4 Lymph # (Auto) 2.5 [place] # (Auto) 0.7 Eos # (Auto) 0.2 Baso # (Auto) 0.0 WBC Differential . Differential Comment Auto diff final PT 11.3 INR 1.1 APTT 25.5 Sodium 141 Potassium 3.8 Chloride 106 Carbon Dioxide 25.6 Anion Gap 9 BUN 13 Creatinine 1.05 Estimated GFR Greater than 89 POC Glucose Random Glucose 116 H Calcium 8.6 Total Bilirubin 0.3 AST 13 L ALT 17 Alkaline Phosphatase 128 H Total Creatine Kinase 107 CK-MB (CK-2) 1.6 Troponin I 0.04 Total Protein 7.0 Albumin 3.1 L Urine Color Urine Clarity Urine pH Ur Specific [place] Urine Protein Urine Glucose (UA) Urine Ketones Urine Occult Blood Urine Nitrate Urine Bilirubin Urine Urobilinogen Ur Leukocyte Esterase Urine RBC Urine WBC Hyaline Casts Urine Mucus Micro UA Comment Urine Culture Comments 12/29/17 12/29/17 00:25 07:12 WBC RBC Hgb Hct MCV MCH MCHC RDW Plt Count MPV Neut % (Auto) Lymph % (Auto) [place] % (Auto) Eos % (Auto) Baso % (Auto) Neut # (Auto) Lymph # (Auto) [place] # (Auto) Eos # (Auto) Baso # (Auto) WBC Differential Differential Comment PT INR APTT Sodium Potassium Chloride Carbon Dioxide Anion Gap BUN Creatinine Estimated GFR POC Glucose 224 H Random Glucose Calcium Total Bilirubin AST ALT Alkaline Phosphatase Total Creatine Kinase CK-MB (CK-2) Troponin I Total Protein Albumin Urine Color Yellow Urine Clarity Clear Urine pH 5.0 Ur Specific [place] 1.030 Urine Protein 100 H Urine Glucose (UA) Negative Urine Ketones Negative Urine Occult Blood Small H Urine Nitrate Negative Urine Bilirubin Negative Urine Urobilinogen Less than 2 Ur Leukocyte Esterase Negative Urine RBC 11 H Urine WBC 3 Hyaline Casts 9 Urine Mucus Few H Micro UA Comment Culture not ind Urine Culture Comments Culture not ind - Imaging Impressions Chest X-Ray 12/28/17 18:31 CONCLUSION: No acute cardiopulmonary process. Head CT 12/28/17 18:31 CONCLUSION: 1. New small area of low density at the posterior left basal ganglia with low density centrally into the posterior limb of the internal capsule likely from prior/recent lacunar infarct. Significant mass effect or hemorrhage is not seen. 2. Right parietal encephalomalacia from prior insult. This finding was present previously. 3. No acute areas of hemorrhage or mass effect are seen. Assessment and Plan - Assessment (1) CVA (cerebral vascular accident) Code(s): I63.9 - Cerebral infarction, unspecified Status: Acute (2) HTN (hypertension) Code(s): I10 - Essential (primary) hypertension Status: Acute (3) DM (diabetes mellitus) Code(s): E11.9 - Type 2 diabetes mellitus without complications Status: Acute - Plan This is a 47-year-old male with a PMH of HTN, DM, CVA with Residual Right-Sided Weakness and Bilateral BKA who presented to the ER w/ complaints of facial droop and drooling x3 days. CVA, h/o CVA w/ Residual Right-Sided Hemiparesis, now w/ acute facial droop and drooling x3 days. -On ASA and Eliquis, compliant w/ meds. -CT Head w/ new low density lesion left basal ganglia, likely prior/recent lacunar infarct. -Consult Neurology for further recommendations as pt on anticoagulation. -Neuro checks, PT/Speech for eval/tx. -Resume ASA and Eliquis for now. Continue Statin. -Permissive HTN. -MRI, US Carotids -He is already following with [facility] in [place] -Patient known to me on previous admission, he usually has normal speech and not slow or slurred DM Type 2 -Sliding scale w/ Accu-Cheks. Hold Metformin for now. -Restart home dose Levemir if patient is eating well. HTN -Monitor closely, permissive HTN at this time. DVT Prophylaxis: SCD/Teds Code Status: Full Code Discussed Condition With: Patient, nursing Discharge Planning: Plan to DC home when cleared by neurology
[2017-12-29] MEDS: Gabapentin 300 MG Capsule PO SCH ×3 (10:03→18:44)
[2017-12-29] MEDS: Folic Acid 1 MG Tablet PO SCH (10:03)
[2017-12-29] MEDS: Insulin NovoLOG Aspart Correctional Sugar Inj SQ SCH ×4 (10:07→20:44)
--- NOTE | 2017-12-29 11:04 | US ---
EXAM DATE: 12/29/2017 10:56 AM EDT AGE/SEX: 47 years / Male INDICATIONS: Slurred speech. CLINICAL DATA: This is the patient's initial encounter. Patient reports that signs and symptoms have been present for 1 day and indicates a pain score of 10/10. MEDICAL/SURGICAL HISTORY: Hypercholesterolemia. Diabetes. Stroke. HTN. . Bilateral BKA. CABG. COMPARISON: [facility], CTA CAROTID ARTERIES W 3D RECON, 06/23/2015. . VELOCITY PARAMETERS: ICA/CCA Ratio: Right 0.5 , Left 1.3 ICA: Right 92 cm/sec, Left 127 cm/sec CCA: Right 186 cm/sec, Left 100 cm/sec ECA: Right 114 cm/sec, Left 86 cm/sec Vertebral: Right 56 cm/sec antegrade, Left 96 cm/sec antegrade FINDINGS: Right Carotid: There is mild to moderate noncalcified plaque in the common carotid artery, most justice re in the mid aspect. Also, there is mild noncalcified plaque in the carotid bulb and proximal audit intern al carotid artery.The waveforms are within normal limits. Left Carotid: There is mild intimal thickening throughout the common carotid artery with minimal non calcified plaque in the carotid bulb. The waveforms are within normal limits. Other: None. CONCLUSION: 1. Right Internal Carotid Artery: Findings indicate <50% stenosis. 2. Left Internal Carotid Artery: Findings indicate <50% stenosis. Electronically signed by: Jayce Cabrera MD 12/29/2017 11:02 AM EDT
--- NOTE | 2017-12-29 11:33 | MR ---
EXAM DATE: 12/29/2017 11:28 AM EDT AGE/SEX: 47 years / Male INDICATIONS: CVA. Right sided weakness. CLINICAL DATA: This is the patient's initial encounter. Patient reports that signs and symptoms have been present for 1 day and indicates a pain score of 3/10. MEDICAL/SURGICAL HISTORY: Cardiovascular disease. Prior stroke. CABG. Below the Knee sx., Rt l eg stent. COMPARISON: No prior exams available for comparison. TECHNIQUE: Multiplanar, multisequence examination of the brain was performed without contrast. FINDINGS: There is no evidence for intracranial hemorrhage, mass effect, mass lesions, edema, or extra-axial fl uid collections. The ventricles are slightly prominent probably due to atrophic changes. There are no signs of acute infarction for technique. The diffusion portion is unremarkable. There is encephal omalacia in the right posterior parietal occipital watershed junction due to old infarction. The area of low attenuation involving the left basal ganglia extends down to the left side of the justina does n ot demonstrate any abnormal diffusion most likely from prior small vessel ischemic change. Moderate p eriventricular white matter changes are seen nonspecific mostly consistent with chronic small vessel ischemic changes. CONCLUSION: Chronic small vessel ischemic and atrophic changes, old infarctions. Electronically signed by: Nan Medina MD 12/29/2017 11:32 AM EDT
--- NOTE | 2017-12-29 17:40 | ECG ---
Date Performed: 12/28/2017 Time Performed: 18:22:25 PTAGE: 47 years EKG: Sinus rhythm ABNORMAL QRS-T ANGLE ABNORMAL ECG PREVIOUS TRACING 06/20/09 @ 09.14 Since the previous tracing, no significant change noted DOCTOR: Sharan Null Interpretating Date/Time 12/29/2017 17:39:44
[2017-12-29] MEDS: valACYclovir 500 MG Tab PO SCH (21:33)
--- NOTE | 2017-12-30 08:18 | MB ---
cc: Nicanor Oliva MD, PhD DATE: 12/29/2017 REASON FOR CONSULTATION: Possible stroke. HISTORY OF PRESENT ILLNESS: Mr. Mattson is a 47-year-old man who has a history of previous stroke a couple years ago, rendering him weak on the left side, the arm and the leg. About 2 days ago, noted right facial weakness, with no other neurologic complaints. He has had some decreased taste. He came to the ER. He has residual right-sided weakness involving the arm and leg. This did not get any worse. PAST MEDICAL HISTORY: Remarkable for history of stroke in the past, hypertension, diabetes, bilateral BKA. CURRENT MEDICATIONS: Eliquis 5 mg per day, [place] as needed for pain, Ecotrin 325 mg daily, Lipitor 40 mg daily, Vasotec p.r.n., glucagon, insulin. NEUROLOGIC EXAMINATION: VITAL SIGNS: Blood pressure is 156/89, pulse is 82, respiratory rate is 17, temperature 97. GENERAL: Higher cortical function is normal. NEUROLOGIC: Cranial nerves, he has got a right lower motor neuron VII palsy. Other cranial nerves are intact. Motor exam, he is weak in the right arm and right leg, rated at 3/5 strength. IMAGING: MRI of the brain is reviewed and this shows old stroke in the right posterior parietal occipital watershed area. There is an old stroke identified left basal ganglia and left justina. No diffusion abnormality to indicate acute stroke. No hemorrhage is seen. CT scan of the head, new small area of low density left basal ganglia. Right encephalomalacia from prior stroke. Carotid ultrasound, no significant stenosis is seen. LABORATORY DATA: White count 8800, hemoglobin 10.2, hematocrit 31.5%, platelet count is 343,000. PT 11.3, INR 1.1, aPTT 25.5. Sodium is 141, potassium 3.8, chloride 106, CO2 25.6, the BUN is 13, creatinine 1.05, AST 13, ALT 17. IMPRESSION: I believe the facial weakness is due to Enrique's palsy, not a new stroke. RECOMMENDATION: We will check a Lyme PCR. I also recommend Valtrex for 7 days. Low-dose prednisone. We will keep the dose low given his history of diabetes. Nicanor Oliva MD, PhD CRUZ/ROLDAN , 05:06 PM , 05:26 PM
[2017-12-30] MEDS ORDERED: Lisinopril 10 MG Tablet PO SCH (09:00)
[2017-12-30] MEDS ORDERED: predniSONE 20 MG Tablet PO SCH (09:00)
[2017-12-30] MEDS: Insulin NovoLOG Aspart Correctional Sugar Inj SQ SCH (09:28)
--- NOTE | 2017-12-30 09:29 | P.DS ---
Date of admission: 12/28/17 21:23 Primary care physician: Dionicio José MD Brief History from admission: This is a 47-year-old male with a PMH of HTN, DM, CVA with Residual Right-Sided Weakness and Bilateral BKA who presented to the ER w/ complaints of facial droop and drooling x3 days. Did not seek medical attention until now. On ASA and Eliquis 5mg bid, reports compliance w/ medications. Denies motor weakness besides residual symptoms from prior CVA. On arrival, BP 100/56, HR 85, O2 sat 99% on RA, Afebrile. CBC essentially unremarkable. Chemistry essentially unremarkable. INR 1.1. CT Head new area of low density left basal ganglia with low density centrally into posterior limb of internal capsule likely from prior/recent lacunar infarct, no mass-effect or hemorrhage. DS: Summary Hospital Course: This is a 47-year-old male with a PMH of HTN, DM, CVA with Residual Right-Sided Weakness and Bilateral BKA who presented to the ER w/ complaints of facial droop and drooling x3 days. MRI shows old infarction. Carotid Doppler was unremarkable. 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 Patient was subsequently discharged home with PCP follow up. - Time Spent with Patient Total time spent providing and/or coordinating discharge services: Less than 30 minutes - Quality: VTE Deep Vein Thrombosis/Pulmonary Embolism Present on Admission: No Exam Vital signs: Vital Signs 12/29/17 12:00 12/29/17 16:00 12/29/17 17:22 Temperature 97.8 F Pulse Rate 82 70 Respiratory Rate 17 20 Blood Pressure 156/89 H 207/113 H Pulse Oximetry 99 99 12/29/17 20:00 12/30/17 00:00 12/30/17 04:00 Temperature 97.6 F 97.6 F 97.8 F Pulse Rate 74 74 71 Respiratory Rate 18 18 18 Blood Pressure 147/103 H 189/101 H 177/94 H Pulse Oximetry 100 100 100 Intake & Output 12/29/17 12/30/17 12/30/17 18:59 06:59 18:59 Intake Total 360 / 360 Output Total 1500 / 1500 1750 / 1750 Balance -1500 / -1500 -1390 / -1390 Weight 69.3 kg Intake: Oral 360 / 360 Output: Urine 1500 / 1500 1750 / 1750 Other: # Voids 1 Results Procedures completed during hospitalization: None. Labs on day of discharge: Labs from last 24 hours 12/29/17 12/29/17 12/29/17 20:29 19:04 17:18 POC Glucose 220 H 183 H 149 H 12/29/17 12/29/17 12/29/17 17:16 16:40 16:38 POC Glucose Greater than 600 H* 64 L 59 L 12/29/17 11:39 POC Glucose 233 H - Impressions ITS Impressions Chest X-Ray 12/28/17 18:31 CONCLUSION: No acute cardiopulmonary process. Head CT 12/28/17 18:31 CONCLUSION: 1. New small area of low density at the posterior left basal ganglia with low density centrally into the posterior limb of the internal capsule likely from prior/recent lacunar infarct. Significant mass effect or hemorrhage is not seen. 2. Right parietal encephalomalacia from prior insult. This finding was present previously. 3. No acute areas of hemorrhage or mass effect are seen. Carotid Doppler Study 12/29/17 00:00 CONCLUSION: 1. Right Internal Carotid Artery: Findings indicate <50% stenosis. 2. Left Internal Carotid Artery: Findings indicate <50% stenosis. Head MRI 12/29/17 00:00 CONCLUSION: Chronic small vessel ischemic and atrophic changes, old infarctions. Discharge Plan - Discharge Disposition Patient Disposition: 01 Discharge Home - Discharge Condition Condition: Good - Discharge Order Discharge Orders: Discharge Order (Routine); Ordered 12/30/17 Ordered By: Leann Patel - Discharge Details Anticipated Discharge Date: 12/30/17 - Physicians Team Primary Care Provider: Dionicio José Attending Provider: Leann Patel Other Providers: Nicanor Oliva MD, PhD
[2017-12-30] MEDS: Folic Acid 1 MG Tablet PO SCH (09:30)
[2017-12-30] MEDS: Gabapentin 300 MG Capsule PO SCH (09:30)
[2017-12-30] MEDS: valACYclovir 500 MG Tab PO SCH (09:31)
== END 2017-12-30 10:10 | disposition home or self-care (01) ==
LOC: NEPE 18:05 → NEDA 21:23 → NEDH 12-29 00:49 → N05 12-29 15:59 → NEDH 12-29 16:02
PROVIDERS: ADMIT Hospitalist; ATTEND Hospitalist
DX: E78.00 Pure hypercholesterolemia, unspecified; Z89.512 Acquired absence of left leg below knee; I10 Essential (primary) hypertension; Z89.511 Acquired absence of right leg below knee; E11.9 Type 2 diabetes mellitus without complications; I69.351 Hemiplegia and hemiparesis following cerebral infarction affecting right dominant side; G51.0 Bell's palsy; F17.210 Nicotine dependence, cigarettes, uncomplicated